=== PATIENT | female | born 1935 | race Caucasian/White ===

== ENCOUNTER 2021-04-24 08:32 | Inpatient (IN) | payer MEDICARE ==
[~2021-04-24] VITALS: Ht 157.5 cm; Wt 51.8 kg
[2021-04-24] MEDS ORDERED: NITR100C2 PO (09:06)
[2021-04-24] MEDS ORDERED: LISI10TA22 (09:06)
[2021-04-24] MEDS ORDERED: DONE10TA90 PO (09:06)
[2021-04-24] MEDS ORDERED: PHEN-501 PO (09:06)
--- NOTE | 2021-04-24 09:48 | REP ---
INDICATION: altered LOC. COMPARISON: None. TECHNIQUE: Single portable AP view of the chest was performed. FINDINGS: There is mild linear fibro atelectatic change in each lung base. There is mild cardiomegaly. There is mild calcification and tortuosity of the thoracic aorta. IMPRESSION: No acute infiltrate. Mild cardiomegaly. <Electronically signed by Sarkis Crowe > 04/24/21 [id number]
[2021-04-24 10:01] LABS: BASO # 0.1 10^3/uL (0.0-0.2); BASO % 0.4 % (0.0-1.0); EOS # 0.1 10^3/uL (0.0-0.5); EOS % 1.2 % (0.0-3.0); HEMATOCRIT 46.9 % (36.0-47.0); HEMOGLOBIN 15.3 g/dl (12.0-15.5); LYMPH # 1.5 10^3/uL (1.5-5.0); LYMPH % 12.3 % (24.0-44.0); MEAN CORPUSCULAR HGB CONC 32.6 g/dl (32.0-36.5); MEAN CORPUSCULAR VOLUME 94.9 fl (80.0-96.0); MONO % 8.5 % (2.0-8.0); NEUTROPHILS # 9.3 10^3/uL (1.5-8.5); PLATELET COUNT, AUTOMATED 312 10^3/uL (150-450); RED BLOOD COUNT 4.94 10^6/uL (4.00-5.40); WHITE BLOOD COUNT 12.1 10^3/uL (4.0-10.0)
[2021-04-24 10:28] LABS: BLOOD UREA NITROGEN 24 MG/DL (7-18); CALCIUM LEVEL 9.3 MG/DL (8.8-10.2); CARBON DIOXIDE LEVEL 25 MEQ/L (21-32); CHLORIDE LEVEL 110 MEQ/L (98-107); GLOMERULAR FILTRATION RATE > 60.0 (>32); GLUCOSE, FASTING 102 MG/DL (70-100); POTASSIUM SERUM 4.1 MEQ/L (3.5-5.1); SODIUM LEVEL 142 MEQ/L (136-145)
[2021-04-24 11:00] LABS: BILIRUBIN, URINE MANUAL OBSCURED (NEGATIVE); GLUCOSE, URINE (UA) MANUAL NEGATIVE (NEGATIVE); KETONE, URINE MANUAL OBSCURED mg/dL (NEGATIVE); UROBILINOGEN, URINE MANUAL OBSCURED mg/dl (NORMAL)
--- NOTE | 2021-04-24 11:02 | REP ---
INDICATION: CVA. COMPARISON: None. TECHNIQUE: CT brain performed in the axial plane. Coronal reconstruction images are performed. FINDINGS: There is moderate atrophy. There is no midline shift or mass effect. There are mild periventricular hypodensities bilaterally suggesting chronic small vessel ischemic change. There is no acute intracranial hemorrhage. There is no extra-axial fluid collection. There is no skull fracture. There are vascular calcifications in the carotid siphons. The visualized paranasal sinuses and mastoid air cells are clear. IMPRESSION: Chronic atrophy. No acute intracranial hemorrhage, midline shift or mass effect. <Electronically signed by Sarkis Crowe > 04/24/21 [id number]
[2021-04-24 11:13] LABS: BACTERIA, URINE SMALL AMOUNT; HYALINE CAST, URINE NONE SEEN /lpf (0-1); RBC, URINE 0-1 /hpf (0-3); SQUAMOUS EPITHELIAL CELL URINE SMALL AMOUNT /hpf (SMALL AMT)
[2021-04-24] MEDS ORDERED: hydrALAZINE 20MG/ML 1ML VIAL (J0360 PER 20MG) IV ONE (11:30)
[2021-04-24] MEDS ORDERED: ISOVUE-370 76% 100ML VIAL As Ordered ONE (11:59)
[2021-04-24 12:32] LABS: CPK CREATINE PHOSPHOKINASE 112 U/L (26-192); MB/CK RELATIVE INDEX 0.89 (< OR =4); TROPONIN I < 0.02 NG/ML (< 0.10)
--- NOTE | 2021-04-24 13:20 | REPVR ---
PROCEDURE INFORMATION: Exam: CT Angiography Head With Contrast, Arteriography Exam date and time: 04/24/2021 12:05 PM Age: 86 years old Clinical indication: Weakness; Additional info: CVA TECHNIQUE: Imaging protocol: Computed tomography angiography of the head with contrast. Exam focused on the arteries. 3D rendering (Not supervised by radiologist): MIP and/or 3D reconstructed images were created by the technologist. Radiation optimization: All CT scans at this facility use at least one of these dose optimization techniques: automated exposure control; mA and/or kV adjustment per patient size (includes targeted exams where dose is matched to clinical indication); or iterative reconstruction. Contrast material: ISO 370; Contrast volume: 100 ml; Contrast route: INTRAVENOUS (IV); COMPARISON: CT Head without contrast 04/24/2021 10:45 AM FINDINGS: ANTERIOR CIRCULATION: Right internal carotid artery: Unremarkable. Intracranial segment is patent with no significant stenosis. No aneurysm. Right middle cerebral artery: Unremarkable. No occlusion or significant stenosis. No aneurysm. Right anterior cerebral artery: Unremarkable. No occlusion or significant stenosis. No aneurysm. Left internal carotid artery: Unremarkable. Intracranial segment is patent with no significant stenosis. No aneurysm. Left middle cerebral artery: There is severe focal stenosis at the M1/M2 junction of the left middle cerebral artery. There is a focal occlusion at the origin of the M2 superior division of the left middle cerebral artery. Left anterior cerebral artery: Unremarkable. No occlusion or significant stenosis. No aneurysm. POSTERIOR CIRCULATION: Right vertebral artery: Unremarkable. No occlusion or significant stenosis. No aneurysm. Left vertebral artery: Unremarkable. No occlusion or significant stenosis. No aneurysm. Basilar artery: Unremarkable. No occlusion or significant stenosis. No aneurysm. Right posterior cerebral artery: There is severe stenosis of the mid P2 segment of the right posterior cerebral artery. Left posterior cerebral artery: Unremarkable. No occlusion or significant stenosis. No aneurysm. Brain: No definite mass, mass effect, or midline shift. Cerebral ventricles: No ventriculomegaly. Bones/joints: Unremarkable. No acute fracture. Soft tissues: Unremarkable. IMPRESSION: 1. 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 2. Severe stenosis of the mid P2 segment of the right posterior cerebral artery. Electronically signed by: Susanne Waller On 04/24/2021 13:20:25 PM
--- NOTE | 2021-04-24 13:28 | REPVR ---
PROCEDURE INFORMATION: Exam: CT Angiography Neck With Contrast Exam date and time: 04/24/2021 12:05 PM Age: 86 years old Clinical indication: Weakness; Additional info: CVA TECHNIQUE: Imaging protocol: Computed tomography angiography of the neck with contrast. 3D rendering (Not supervised by radiologist): MIP and/or 3D reconstructed images were created by the technologist. Radiation optimization: All CT scans at this facility use at least one of these dose optimization techniques: automated exposure control; mA and/or kV adjustment per patient size (includes targeted exams where dose is matched to clinical indication); or iterative reconstruction. Contrast material: ISO 370; Contrast volume: 100 ml; Contrast route: INTRAVENOUS (IV); COMPARISON: CT Head without contrast 04/24/2021 10:45 AM FINDINGS: Right common carotid artery: No stenosis. No dissection or occlusion. Right internal carotid artery: No stenosis of the extracranial segment. No dissection or occlusion. Right external carotid artery: No occlusion or stenosis of the origin. Left common carotid artery: No stenosis. No dissection or occlusion. Left internal carotid artery: No stenosis of the extracranial segment. No dissection or occlusion. Left external carotid artery: No occlusion or stenosis of the origin. Right vertebral artery: No stenosis. No dissection or occlusion. Left vertebral artery: No stenosis. No dissection or occlusion. Thyroid: There is diffuse masslike enlargement of the right thyroid lobe, with heterogeneous masses measuring up to 2.5 cm in diameter. The left thyroid lobe is surgically absent. Soft tissues: Normal. No significant soft tissue swelling. Bones/joints: No acute fracture. IMPRESSION: No significant cervical arterial stenosis. COMMENTS: Consistent with the [employer]'s Incidental Findings Committee white paper (J Am Dougie Radiol 2015): In patients aged 35 years and older with an incidental thyroid nodule equal to or greater than 1.[address], MRI or extrathyroidal US, further evaluation with dedicated thyroid US is recommended for patients with normal life expectancy and without comorbidities. For smaller nodules without suspicious features, no further evaluation or follow up is recommended. REFERENCES: NASCET CRITERIA. The degree of internal carotid artery stenosis is based on NASCET criteria. Normal is no stenosis. Mild is less than 50% stenosis. Moderate is 50-69% stenosis. Severe is 70% to 99% stenosis. Total occlusion is no detectable patent lumen. Electronically signed by: Susanne Waller On 04/24/2021 13:27:38 PM
[2021-04-24] MEDS ORDERED: niCARdipine IV 40 MG in IV 1 EA IV SCH (14:00)
[2021-04-24] MEDS ORDERED: PROAAER10 INH (14:33)
[2021-04-24] MEDS ORDERED: ACET-907 PO (14:33)
[2021-04-24] MEDS ORDERED: MELA10CA2 PO (14:33)
[2021-04-24] MEDS ORDERED: HOME MED LIST COMPLETE! XX SCH (14:35)
[2021-04-24] MEDS ORDERED: lisinopriL 40 MG TAB PO ONE (14:45)
--- NOTE | 2021-04-24 15:02 | HPEPDOC ---
General Date of Admission 04/24/21 Date of Service: Apr 24, 2021 Chief Complaint The patient is a 86-year-old female admitted with a reason for visit of AMS. Source: Patient Exam Limitations: Clinical conditions History of Present Illness Patient is 86 years old female with past medical history of Jeremie body dementia, hypertension presented to hospital with increased mental confusion. According to her daughter who is present in the ER patient developed increased mental confusion on Saturday which became progressively worse compared to her baselin e. Patient became more weak and somnolent. Her daughter brought her to the [facility] where patient was diagnosed with UTI, nitrofurantoin was prescribed. CT head was done and was negative for stroke or bleed. On Saturday patient was able to answer the question and communicate. Since Saturday patient became more mentally confused and weak. In ER patient was found to have elevated systolic blood pressure up to 210, leukocytosis of 12.1, creatinine within normal limit. Chest x-ray shows no any acute infiltrate, CT head negative for acute bleeding or stroke. 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 Severe stenosis of the mid P2 segment of the right posterior cerebral artery. Home Medications Scheduled Donepezil HCl (Donepezil HCl) 10 Mg Tablet, 10 MG PO QHS, (Reported) Melatonin (Melatonin) 10 Mg Capsule, 10 MG PO QHS, (Reported) Nitrofurantoin Monohyd/M-Cryst (Nitrofurantoin [place]-Mcr 100 mg) 100 Mg Capsule, 100 MG PO BID, (Reported) Scheduled PRN Acetaminophen (Tylenol) 325 Mg Tablet, 650 MG PO QHS PRN for PAIN LEVEL 1-5, (Reported) Albuterol Sulfate (Proair Hfa) 8.5 Gm Hfa.aer.ad, 2 PUFF INH Q4H PRN for SHORTNESS OF BREATH, (Reported) Phenazopyridine HCl (Phenazopyridine HCl) 200 Mg Tablet, 200 MG PO TID PRN for BLADDER SPASM, (Reported) Allergies Coded Allergies: Sulfa (Sulfonamide Antibiotics) (Verified Allergy, Unknown, 04/24/21) Past Medical History Medical History Jeremie body dementia, hypertension Surgical History Cardiac catheterization in 2005, parathyroidectomy 2008, hysterectomy Family History I personally reviewed family history and found not pertinent Social History * Smoker: Denies Alcohol: Denies Drugs: denies A-FIB/CHADSVASC A-FIB History Current/History of A-Fib/PAF?: No Current PO Anticoag Therapy: No Review of Systems Constitutional: Reports: Other (Unable to obtain due to lethargy) Physical Examination General Exam: Negative: Alert Eye Exam: Positive: PERRLA ENT Exam: Positive: Atraumatic Neck Exam: Positive: Supple; Negative: JVD Chest Exam: Positive: Clear to auscultation Heart Exam: Positive: Rate Normal Telemetry: Positive: No significant arrhythmia Abdomen Exam: Positive: Normal bowel sounds Extremity Exam: Negative: Clubbing, Cyanosis Skin Exam: Positive: Nl turgor and temperature Neuro Exam: Positive: Reflexes 2+ Psych Exam: Negative: Oriented x 3 Vital Signs Vital Signs Date Time Temp Pulse Resp B/P (MAP) Pulse Ox O2 Delivery O2 Flow Rate FiO2 04/24/21 14:01 94 16 04/24/21 14:00 171/100 (123) 04/24/21 10:47 93 Room Air 04/24/21 09:01 98.0 Laboratory Data Labs 24H Laboratory Tests 2 04/24/21 09:48: Immature Granulocyte % (Auto) 0.6, Neutrophils (%) (Auto) 77.0H, Lymphocytes (%) (Auto) 12.3L, Monocytes (%) (Auto) 8.5H, Eosinophils (%) (Auto) 1.2, Basophils (%) (Auto) 0.4, Neutrophils # (Auto) 9.3H, Lymphocytes # (Auto) 1.5, Monocytes # (Auto) 1.0H, Eosinophils # (Auto) 0.1, Basophils # (Auto) 0.1, Nucleated Red Blood Cells % (auto) 0.0, Anion Gap 7L, Glomerular Filtration Rate > 60.0, Lactic Acid Level 1.2, Calcium Level 9.3, Total Creatine Kinase 112, Creatine Kinase MB 1.0, Creatine Kinase MB Relative Index 0.89, Troponin I < 0.02 04/24/21 10:46: Urine Color (RADHA) ORANGEH, Urine Appearance (RADHA) CLEAR, Urine pH (RADHA) 5.5, Urine Specific [place] (RADHA) 1.025, Bedside Urine Glucose (UA) NEGATIVE, Bedside Urine Ketones (LAB) OBSCUREDH, Bedside Urine Blood TRACEH, Bedside Urine Nitrite (LAB) OBSCUREDH, Bedside Urine Bilirubin (LAB) OBSCUREDH, Bedside Urine Urobilinogen (LAB) OBSCUREDH, Bedside Urine Leukocyte Esterase (L OBSCUREDH, Urine Sediment Examination PERFORMED, Urine RBC 0-1, Urine WBC 0-1, Urine Squamous Epithelial Cells SMALL AMOUNT, Urine Bacteria SMALL AMOUNTH, Urine Hyaline Casts NONE SEEN CBC/BMP Laboratory Tests 04/24/21 09:48 Microbiology Microbiology 04/24/21 Urine Culture, Received Pending 04/24/21 Blood Culture, Received Pending 04/24/21 Respiratory Virus Panel (PCR) (ANUEL) - Final, Complete Assessment/Plan Patient is 86 years old female with past medical history of Jeremie body dementia, hypertension presented to hospital with increased mental confusion. According to her daughter who is present in the ER patient developed increased mental confusion on Saturday which became progressively worse compared to her bas guillermo. Patient became more weak and somnolent. Her daughter brought her to the [facility] where patient was diagnosed with UTI, nitrofurantoin was prescribed. CT head was done and was negative for stroke or bleed. On Saturday patient was able to answer the question and communicate. Since Saturday patient became more mentally confused and weak. In ER patient was found to have elevated systolic blood pressure up to 210, leukocytosis of 12.1, creatinine within normal limit. Chest x-ray shows no any acute infiltrate, CT head negative for acute bleeding or stroke. 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 Severe stenosis of the mid P2 segment of the right posterior cerebral artery. Problems (1) Metabolic encephalopathy Status: Acute Problem Text: Most likely multifactorial. Differential diagnosis includes hypertensive emergency, possible stroke, UTI and delirium I will give aspirin per rectum empirically Will proceed with brain MRI I will start ceftriaxone IV empirically for possible UTI (2) Hypertensive emergency Status: Acute Problem Text: Hydralazine IV as needed Lisinopril 40 mg p.o. Continue to monitor (3) Dementia Status: Chronic Problem Text: Follow-up with neurologist in the outpatient settings (4) Physical deconditioning Status: Chronic Problem Text: PT/OT (5) UTI (urinary tract infection) Status: Acute Problem Text: Await urine culture See above Plan / VTE VTE Prophylaxis Ordered?: Yes TRACY PETE DO Apr 24, 2021 15:02
[2021-04-24] MEDS: cefTRIAXone SOD 2 GM in D5W MINI-BAG PLUS 50 ML IV SCH (15:44)
[2021-04-24] MEDS: D5W/0.9% SODIUM CHLORIDE 1,000 ML IV SCH (16:49)
[2021-04-24] MEDS: ASPIRIN 300 MG SUPP PR SCH (20:15)
[2021-04-24 20:30] VITALS: BP 185/92
[2021-04-24 21:30] VITALS: BP 185/92
[2021-04-24 21:46] VITALS: BP 189/114
[2021-04-24] MEDS: hydrALAZINE 20MG/ML 1ML VIAL (J0360 PER 20MG) IV PRN (21:50)
--- NOTE | 2021-04-24 21:59 | ECGEPIP ---
[facility] - ED Test Date: 2021-04-24 Pat Name: ABHAY GRAHAM Department: Room: Gender: Female [employer]: CHARAN : 1935 Requested By: Justo Cabello Order Number: [id number] Reading MD: Clifton Castano Measurements Intervals [place] Rate: 68 P: 29 CA: 162 QRS: -16 QRSD: 76 T: -49 QT: 400 QTc: 425 Interpretive Statements Normal sinus rhythm Minimal voltage criteria for LVH, may be normal variant ( R in aVL ) Nonspecific ST and T wave abnormality Baseline artifact Comparison tracing not on file Electronically Signed on 04-24-2021 21:59:13 EDT by Clifton Castano
[2021-04-24 22:35] VITALS: BP 142/67
[2021-04-25] VITALS (13 sets, daily range): BP systolic 137–212; BP diastolic 70–108
[2021-04-25] MEDS: D5W/0.9% SODIUM CHLORIDE 1,000 ML IV SCH ×2 (03:47→15:03)
[2021-04-25] MEDS: hydrALAZINE 20MG/ML 1ML VIAL (J0360 PER 20MG) IV PRN ×3 (04:19→21:14)
[2021-04-25 05:32] LABS: HEMATOCRIT 42.8 % (36.0-47.0); HEMOGLOBIN 13.9 g/dl (12.0-15.5); MEAN CORPUSCULAR HEMOGLOBIN 30.8 pg (27.0-33.0); MEAN CORPUSCULAR HGB CONC 32.5 g/dl (32.0-36.5); MEAN CORPUSCULAR VOLUME 94.7 fl (80.0-96.0); PLATELET COUNT, AUTOMATED 291 10^3/uL (150-450); RED BLOOD COUNT 4.52 10^6/uL (4.00-5.40); WHITE BLOOD COUNT 12.6 10^3/uL (4.0-10.0)
[2021-04-25 06:04] LABS: ALBUMIN 3.2 GM/DL (3.2-5.2); ALT/SGPT 19 U/L (12-78); BILIRUBIN,TOTAL 0.5 MG/DL (0.2-1.0); BLOOD UREA NITROGEN 19 MG/DL (7-18); CALCIUM LEVEL 8.1 MG/DL (8.8-10.2); CARBON DIOXIDE LEVEL 24 MEQ/L (21-32); CHLORIDE LEVEL 114 MEQ/L (98-107); CREATININE FOR GFR 0.54 MG/DL (0.55-1.30); GLOMERULAR FILTRATION RATE > 60.0 (>32); GLUCOSE, FASTING 142 MG/DL (70-100); MAGNESIUM LEVEL 2.2 MG/DL (1.8-2.4); SODIUM LEVEL 143 MEQ/L (136-145); TOTAL PROTEIN 6.4 GM/DL (6.4-8.2)
--- NOTE | 2021-04-25 06:09 | REPVR ---
PROCEDURE INFORMATION: Exam: US Duplex Bilateral Extracranial Arteries Exam date and time: 04/25/2021 3:39 AM Age: 86 years old Clinical indication: Numbness / parasthesia and other: CVA; Left TECHNIQUE: Imaging protocol: Real-time Duplex ultrasound scan of the bilateral carotid and vertebral arteries combining tate scale, color Doppler and spectral waveform analysis. Bilateral exam. COMPARISON: CT ANGIO NECK 04/24/2021 12:03 PM FINDINGS: Right (cm/sec) Left (cm/sec) Common carotid artery: 39 36 Proximal internal carotid artery: 43 63 Mid internal carotid artery: 42 not evaluated Distal internal carotid artery: 52 not evaluated ICA/CCA ratio: 0.76 not calculated Vertebral Artery: Antegrade not evaluated Plaque: Minimal calcified plaque in the right carotid bulb and proximal ICA. No stenosis. Findings: Minimal plaque formation in the right carotid bulb and proximal ICA. No flow limiting stenosis. Limited evaluation of the left internal carotid artery and left vertebral artery due to lack of patient cooperation.. IMPRESSION: No right carotid arterial stenosis. 2. Limited evaluation of the left carotid and left vertebral artery due to lack of patient cooperation REFERENCES: SRU CRITERIA. The degree of internal carotid artery stenosis is based on criteria defined by the Society of Radiologists in Ultrasound (SRU). Normal is no stenosis. Mild is less than 50% stenosis. Moderate is 50-69% stenosis. Severe is greater than 69% stenosis to near occlusion. Near occlusion is a markedly narrowed lumen. Total occlusion is no detectable patent lumen. Electronically signed by: Sybil Perez On 04/25/2021 06:09:01 AM
[2021-04-25] MEDS ORDERED: PREVNAR 13 VACCINE SYRINGE IM ONE (09:00)
[2021-04-25] MEDS: lisinopriL 40 MG TAB PO SCH (09:00)
[2021-04-25] MEDS: ASPIRIN 300 MG SUPP PR SCH (09:40)
--- NOTE | 2021-04-25 11:09 | IPNPDOC ---
Text Note Date of Service The patient was seen on 04/25/21. NOTE Subjective: Patient is verbally unresponsive, but follows simple commands. Objective: GENERAL APPEARANCE: Verbally unresponsive HEENT: no scleral icterus, no JVD, EOMI CARDIOVASCULAR: S1S2 LUNGS: CTA ABDOMEN: soft & not tender w palpitation MUSCULOSKELETAL: no cyanosis, no swelling INTEGUMENT: no generalized pallor NEUROLOGICAL: Unable to evaluate, follows simple commands Assessment/Plan Patient is 86 years old female with past medical history of Jeremie body dementia, hypertension presented to hospital with increased mental confusion. According to her daughter who is present in the ER patient developed increased mental confusion on Saturday which became progressively worse compared to her baseline. Patient became more weak and somnolent. Her daughter brought her to the [facility] where patient was diagnosed with UTI, nitrofurantoin was prescribed. CT head was done and was negative for stroke or bleed. On Saturday patient was able to answer the question and communicate. Since Saturday patient became more mentally confused and weak. In ER patient was found to have elevated systolic blood pressure up to 210, leukocytosis of 12.1, creatinine within normal limit. Chest x-ray shows no any acute infiltrate, CT head negative for acute bleeding or stroke. 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 Severe stenosis of the mid P2 segment of the right posterior cerebral artery. (1) Metabolic encephalopathy Most likely multifactorial. Differential diagnosis includes hypertensive emergency, UTI, stroke and delirium Continue ceftriaxone IV empirically for possible UTI Brain MRI was not done yesterday due to patient was restless Procalcitonin negative I will repeat CT head (2) Hypertensive emergency/hypertension Blood pressure under control Hydralazine IV as needed Lisinopril 40 mg p.o. Continue to monitor (3) Dementia Follow-up with neurologist in the outpatient settings (4) Physical deconditioning PT/OT (5) UTI (urinary tract infection) urine culture shows LACTOBACILLUS SPECIES, most likely contamination See above VS,Fishbone, I+O VS, Fishbone, I+O Laboratory Tests 04/25/21 05:16 Vital Signs Date Time Temp Pulse Resp B/P (MAP) Pulse Ox O2 Delivery O2 Flow Rate FiO2 04/25/21 08:00 97.2 76 16 158/78 (104) 94 04/25/21 04:13 Room Air I&O- Last 24 Hours up to 6 AM 04/25/21 06:00 Intake Total 410 ml Output Total 1300 ml Balance -890 ml TRACY PTEE DO Apr 25, 2021 11:09
[2021-04-25] MEDS: cefTRIAXone SOD 2 GM in D5W MINI-BAG PLUS 50 ML IV SCH (15:03)
--- NOTE | 2021-04-25 17:18 | REPVR ---
PROCEDURE INFORMATION: Exam: CT Head Without Contrast Exam date and time: 04/25/2021 5:03 PM Age: 86 years old Clinical indication: Weakness, facial; Additional info: R/O stroke. TECHNIQUE: Imaging protocol: Computed tomography of the head without contrast. Radiation optimization: All CT scans at this facility use at least one of these dose optimization techniques: automated exposure control; mA and/or kV adjustment per patient size (includes targeted exams where dose is matched to clinical indication); or iterative reconstruction. Other technique: STROKE PROTOCOL was implemented. COMPARISON: CT Head without contrast 04/24/2021 10:45 AM FINDINGS: Brain: Hypodensity is identified within the left basal ganglia, new compared to the recent prior study and therefore consistent with acute infarction. No acute intracranial hemorrhage is visualized. A calcification is visualized within the left basal ganglia. The white-tate differentiation is otherwise preserved. There are periventricular foci of white matter hypodensity, likely representing small vessel ischemic disease. The acuity of the white matter disease is indeterminate. There is no midline shift. Cerebral ventricles: There is mild prominence of the ventricles and sulci, compatible with atrophy. Paranasal sinuses: Small mucous retention cyst or polyp in the left maxillary sinus. Mastoid air cells: No mastoid effusion. Orbital cavity: Bilateral orbital lens implants. Vasculature: Intracranial atherosclerosis visualized. Bones/joints: The calvarium demonstrates no evidence for a depressed fracture. Soft tissues: Unremarkable. Dental: An impacted tooth is identified within the right side of the maxilla. IMPRESSION: 1. Hypodensity is identified within the left basal ganglia, new compared to the recent prior study and therefore consistent with acute infarction. Correlation with MRI recommended, as clinically indicated. 2. There are periventricular foci of white matter hypodensity, likely representing small vessel ischemic disease. 3. Mild atrophy. 4. Additional findings described above. ASSESSMENT: ASPECTS ([place] Stroke Program Early CT Score) is 7. Electronically signed by: Rene Pate On 04/25/2021 17:17:38 PM
[2021-04-26] MEDS: D5W/0.9% SODIUM CHLORIDE 1,000 ML IV SCH ×3 (02:16→21:30)
[2021-04-26 04:00] VITALS: BP 166/80
[2021-04-26 05:26] LABS: BASO % 0.2 % (0.0-1.0); EOS % 0.1 % (0.0-3.0); HEMATOCRIT 38.2 % (36.0-47.0); HEMOGLOBIN 12.4 g/dl (12.0-15.5); LYMPH # 0.9 10^3/uL (1.5-5.0); MEAN CORPUSCULAR HEMOGLOBIN 30.9 pg (27.0-33.0); MEAN CORPUSCULAR HGB CONC 32.5 g/dl (32.0-36.5); MEAN CORPUSCULAR VOLUME 95.3 fl (80.0-96.0); MONO # 1.5 10^3/uL (0.0-0.8); MONO % 11.4 % (2.0-8.0); NEUTROPHILS # 10.4 10^3/uL (1.5-8.5); NEUTROPHILS % 80.5 % (36.0-66.0); PLATELET COUNT, AUTOMATED 274 10^3/uL (150-450); RED BLOOD COUNT 4.01 10^6/uL (4.00-5.40)
[2021-04-26 05:29] LABS: WHITE BLOOD COUNT 12.9 10^3/uL (4.0-10.0)
[2021-04-26 05:54] LABS: ALBUMIN 2.8 GM/DL (3.2-5.2); ALT/SGPT 23 U/L (12-78); BILIRUBIN,TOTAL 0.5 MG/DL (0.2-1.0); BLOOD UREA NITROGEN 16 MG/DL (7-18); CALCIUM LEVEL 7.8 MG/DL (8.8-10.2); CARBON DIOXIDE LEVEL 23 MEQ/L (21-32); CHLORIDE LEVEL 117 MEQ/L (98-107); GLOMERULAR FILTRATION RATE > 60.0 (>32); GLUCOSE, FASTING 136 MG/DL (70-100); MAGNESIUM LEVEL 2.1 MG/DL (1.8-2.4); POTASSIUM SERUM 3.4 MEQ/L (3.5-5.1); SODIUM LEVEL 146 MEQ/L (136-145); TOTAL PROTEIN 5.8 GM/DL (6.4-8.2)
[2021-04-26 08:00] VITALS: BP 148/72
[2021-04-26] MEDS: ASPIRIN 300 MG SUPP PR SCH (08:31)
[2021-04-26] MEDS: lisinopriL 40 MG TAB PO SCH (08:31)
--- NOTE | 2021-04-26 09:50 | IPNPDOC ---
Text Note Date of Service The patient was seen on 04/26/21. NOTE Subjective: Patient is verbally unresponsive, not follows simple commands. Objective: GENERAL APPEARANCE: Verbally unresponsive HEENT: no scleral icterus, no JVD, EOMI CARDIOVASCULAR: S1S2 LUNGS: CTA ABDOMEN: soft & not tender w palpitation MUSCULOSKELETAL: no cyanosis, no swelling INTEGUMENT: no generalized pallor NEUROLOGICAL: Unable to evaluate cranial nerves function, no follows simple commands Assessment/Plan Patient is 86 years old female with past medical history of Jeremie body dementia, hypertension presented to hospital with increased mental confusion. According to her daughter who is present in the ER patient developed increased mental confusion on Saturday which became progressively worse compared to her baseline. Patient became more weak and somnolent. Her daughter brought her to the [facility] where patient was diagnosed with UTI, nitrofurantoin was prescribed. CT head was done and was negative for stroke or bleed. On Saturday patient was able to answer the question and communicate. Since Saturday patient became more mentally confused and weak. In ER patient was found to have elevated systolic blood pressure up to 210, leukocytosis of 12.1, creatinine within normal limit. Chest x-ray shows no any acute infiltrate, CT head negative for acute bleeding or stroke. 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 Severe stenosis of the mid P2 segment of the right posterior cerebral artery. (1) Metabolic encephalopathy/CVA Most likely secondary to stroke. DC ceftriaxone IV Repeated CT showed Hypodensity is identified within the left basal ganglia, new compared to the recent prior study and therefore consistent with acute infarction Appreciated/agree with neurologist consult N.p.o. for now Overall prognosis is poor Continue aspirin per rectum (2) Hypertensive emergency/hypertension Blood pressure under control Hydralazine IV as needed Continue to monitor (3) Dementia Follow-up with neurologist in the outpatient settings (4) Physical deconditioning PT/OT (5) UTI (urinary tract infection) urine culture shows LACTOBACILLUS SPECIES, most likely contamination See above VS,Fishbone, I+O VS, Fishbone, I+O Laboratory Tests 04/26/21 04:43 Vital Signs Date Time Temp Pulse Resp B/P (MAP) Pulse Ox O2 Delivery O2 Flow Rate FiO2 04/26/21 08:00 98.6 54 18 148/72 (97) 96 Room Air I&O- Last 24 Hours up to 6 AM 04/26/21 06:00 Intake Total 1800 ml Output Total 750 ml Balance 1050 ml TRACY PETE DO Apr 26, 2021 09:50
[2021-04-26] MEDS ORDERED: KCL 10MEQ/100ML SWI (KRUN) 10 MEQ in IV 1 EA IV ONE (10:00)
[2021-04-26 12:00] VITALS: BP 154/75
[2021-04-26 16:00] VITALS: BP 166/78
[2021-04-26 20:00] VITALS: BP 182/81
[2021-04-27] VITALS (30 sets, daily range): BP systolic 134–198; BP diastolic 62–102
[2021-04-27] MEDS: lisinopriL 40 MG TAB PO SCH (07:37)
[2021-04-27] MEDS: D5W/0.9% SODIUM CHLORIDE 1,000 ML IV SCH (07:37)
[2021-04-27 08:02] LABS: BASO % 0.1 % (0.0-1.0); EOS % 0.2 % (0.0-3.0); HEMATOCRIT 38.1 % (36.0-47.0); HEMOGLOBIN 12.3 g/dl (12.0-15.5); LYMPH # 1.2 10^3/uL (1.5-5.0); LYMPH % 8.6 % (24.0-44.0); MEAN CORPUSCULAR HEMOGLOBIN 31.1 pg (27.0-33.0); MEAN CORPUSCULAR HGB CONC 32.3 g/dl (32.0-36.5); MEAN CORPUSCULAR VOLUME 96.2 fl (80.0-96.0); MONO # 1.4 10^3/uL (0.0-0.8); MONO % 10.4 % (2.0-8.0); NEUTROPHILS # 10.9 10^3/uL (1.5-8.5); NEUTROPHILS % 80.1 % (36.0-66.0); PLATELET COUNT, AUTOMATED 229 10^3/uL (150-450); RED BLOOD COUNT 3.96 10^6/uL (4.00-5.40); WHITE BLOOD COUNT 13.7 10^3/uL (4.0-10.0)
[2021-04-27] MEDS: ASPIRIN 300 MG SUPP PR SCH (08:13)
[2021-04-27 08:36] LABS: ALT/SGPT 147 U/L (12-78); BLOOD UREA NITROGEN 15 MG/DL (7-18); CALCIUM LEVEL 8.1 MG/DL (8.8-10.2); CARBON DIOXIDE LEVEL 21 MEQ/L (21-32); CHLORIDE LEVEL 119 MEQ/L (98-107); CREATININE FOR GFR 0.54 MG/DL (0.55-1.30); GLOMERULAR FILTRATION RATE > 60.0 (>32); GLUCOSE, FASTING 138 MG/DL (70-100); POTASSIUM SERUM 3.3 MEQ/L (3.5-5.1); SODIUM LEVEL 152 MEQ/L (136-145)
[2021-04-27 08:37] LABS: ALBUMIN 2.6 GM/DL (3.2-5.2); BILIRUBIN,TOTAL 0.9 MG/DL (0.2-1.0); CHOLESTEROL LEVEL 176 MG/DL (<200); CHOLESTEROL RISK RATIO 4.512 (<5); HDL CHOLESTEROL 39 MG/DL (>40); LDL CHOLESTEROL 117 MG/DL (<100); MAGNESIUM LEVEL 2.2 MG/DL (1.8-2.4); NON-HDL-C 137 MG/DL; TOTAL PROTEIN 5.7 GM/DL (6.4-8.2); TRIGLYCERIDES LEVEL 102 MG/DL (<150)
[2021-04-27] MEDS: hydrALAZINE 20MG/ML 1ML VIAL (J0360 PER 20MG) IV PRN ×7 (08:57→17:43)
--- NOTE | 2021-04-27 09:17 | REP ---
INDICATION: SOB. COMPARISON: Comparison chest x-ray: April 24, 2021. TECHNIQUE: Portable upright AP chest radiograph. FINDINGS: EKG monitoring electrodes overlie the chest. The heart is enlarged unchanged. The aorta is tortuous and calcific. There is mild linear fibrosis in each lung base. No pleural effusion or pulmonary edema is seen. Pulmonary vasculature appears cephalized. No definite infiltrate.. IMPRESSION: CHF pattern with vascular cephalization and cardiomegaly. Bibasilar linear fibrosis.. <Electronically signed by Stephen Mari > 04/27/21 0929
[2021-04-27] MEDS ORDERED: D5W/0.45% SODIUM CHLORIDE 1,000 ML IV SCH (11:10)
[2021-04-27] MEDS ORDERED: D5W/0.45% SODIUM CHLORIDE 1,000 ML IV ONE ×2 (11:10→13:00)
[2021-04-27] MEDS ORDERED: KCL 20MEQ IN D5/0.45NS 1000ML 1,000 ML IV SCH (11:10)
--- NOTE | 2021-04-27 11:14 | IPNPDOC ---
Text Note Date of Service The patient was seen on 04/27/21. NOTE Subjective: Patient is verbally unresponsive, but more awake and alert compared to yesterday Objective: GENERAL APPEARANCE: Verbally unresponsive HEENT: no scleral icterus, no JVD, EOMI CARDIOVASCULAR: S1S2 LUNGS: CTA ABDOMEN: soft & not tender w palpitation MUSCULOSKELETAL: no cyanosis, no swelling INTEGUMENT: no generalized pallor NEUROLOGICAL: Unable to evaluate cranial nerves function, right hemiplegia Assessment/Plan Patient is 86 years old female with past medical history of Jeremie body dementia, hypertension presented to hospital with increased mental confusion. According to her daughter who is present in the ER patient developed increased mental confusion on Saturday which became progressively worse compared to her baseline. Patient became more weak and somnolent. Her daughter brought her to the [facility] where patient was diagnosed with UTI, nitrofurantoin was prescribed. CT head was done and was negative for stroke or bleed. On Saturday patient was able to answer the question and communicate. Since Saturday patient became more mentally confused and weak. In ER patient was found to have elevated systolic blood pressure up to 210, leukocytosis of 12.1, creatinine within normal limit. Chest x-ray shows no any acute infiltrate, CT head ne gative for acute bleeding or stroke. 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 Severe stenosis of the mid P2 segment of the right posterior cerebral artery. (1) Metabolic encephalopathy/CVA Most likely secondary to stroke. Repeated CT showed Hypodensity is identified within the left basal ganglia, new compared to the recent prior study and therefore consistent with acute infarction Appreciated/agree with neurologist consult Continue n.p.o. for now, patient is not able to swallow. Speech evaluation Overall prognosis is poor Continue aspirin per rectum (2) Hypertensive emergency/hypertension Blood pressure under control Hydralazine IV as needed Continue to monitor (3) Dementia Follow-up with neurologist in the outpatient settings (4) Physical deconditioning PT/OT (5) UTI (urinary tract infection) urine culture shows LACTOBACILLUS SPECIES, most likely contamination See above Hypernatremia/metabolic alkalosis Secondary to water deficit I will give D5 with half of normal saline 2 boluses and continues fluid 130 cc/h We will continue to monitor BMP VS,Fishbone, I+O VS, Fishbone, I+O Laboratory Tests 04/27/21 07:37 Vital Signs Date Time Temp Pulse Resp B/P (MAP) Pulse Ox O2 Delivery O2 Flow Rate FiO2 04/27/21 08:57 194/78 04/27/21 08:00 99.3 41 16 93 Room Air I&O- Last 24 Hours up to 6 AM 04/27/21 06:00 Intake Total 0 ml Output Total 150 ml Balance -150 ml TRACY PETE DO Apr 27, 2021 11:14
[2021-04-27] MEDS ORDERED: KCL 10MEQ/100ML SWI (KRUN) 10 MEQ in IV 1 EA IV ONE (12:00)
--- NOTE | 2021-04-27 13:30 | CR ---
CONSULTATION DATE: 04/25/2021 REFERRING PHYSICIAN: Dr. Saulo Man REASON FOR CONSULTATION: Altered mental status and right-sided weakness. HISTORY OF PRESENT ILLNESS: lOga Morris is an 86-year-old woman with a history of possible Lewy body dementia and hypertension who presented to [facility] with confusion, altered speech, leaning to right side, and facial droop. Last week on Saturday she went to [facility] and was diagnosed with urinary tract infection and was prescribed nitrofurantoin. History was obtained from electronic medical records and patient's son-in-law, whom I talked to on phone. Next day, patient's symptoms worsened, and she developed more speech difficulty and right-sided weakness. According to the patient's son-in-law, patient follows with a neurologist in [facility], and she has a summer cottage in this region, and she was visiting there. At her baseline she is able to walk and is able to speak and communicate. He himself has not noted significant memory issues at patient's baseline. Patient was unable to provide any meaningful history during today's visit. There are no reports of headaches, neck/back pain, diplopia, fall, head injuries, or loss of consciousness. Initial CT scan of head in the emergency department was reported as unremarkable. Repeat CT scan of head shows a new left basal ganglia acute ischemic stroke. CT angiogram (CTA) of neck and ultrasound of neck were unremarkable. CTA of head showed left middle cerebral artery severe stenosis and right posterior cerebral artery severe stenosis. Complete blood count (CBC) and metabolic profile were unremarkable. HOME MEDICATIONS: - donepezil 10 mg by mouth daily - melatonin 10 mg by mouth daily - nitrofurantoin 100 mg by mouth twice a day - Tylenol as needed - albuterol inhaler as needed - phenazopyridine 200 mg by mouth three times a day as needed ALLERGIES: SULFA. MEDICAL HISTORY: 1. Lewy body dementia. 2. Hypertension. 3. Cardiac catheterization in 2005. 4. Parathyroidectomy in 2008. 5. Hysterectomy. SOCIAL HISTORY: No reports of smoking, alcohol, or illicit drugs. FAMILY HISTORY: Unremarkable and noncontributory. REVIEW OF SYSTEMS: All systems were reviewed and found to be noncontributory except as mentioned in history of present illness. PHYSICAL EXAMINATION: Temperature 98.4, pulse 52, respiratory rate 22, blood pressure 166/78. HEART: Regular rate and rhythm. Telemetry monitoring revealed sinus bradycardia. LUNGS: Clear to auscultation. ABDOMEN: Soft, nontender, nondistended. No pedal edema. Patient is drowsy but opens eyes to physical stimuli. She is unable to speak. Extraocular muscles are intact. She has right-sided upper motor neuron type facial weakness. No nystagmus. She has right-sided neglect and right hemiparesis. She is able to withdraw left side much more rigorously to pain than right side. She does withdraw on right side to pain. Right plantar is upgoing. Left plantar is downgoing. Sensory cerebellar and gait testing could not be performed due to patient's drowsiness and inability to follow commands. ASSESSMENT: 1. Left basal ganglia acute ischemic stroke, causing aphasia and right hemiparesis. 2. 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 3. Underlying Lewy body dementia, for which patient saw neurology in [place], [place]. PLAN: 1. Aspirin 300 mg per rectum daily. 2. Patient is unable to lie still for MRI scan of brain. 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 I had a detailed discussion with patient's son-in-law about patient's diagnosis and prognosis. 3. Continue donepezil 10 mg daily. 4. Her aphasia and right hemiparesis would cause significant decline in her activities of daily living, especially in the presence of underlying dementia, which has been diagnosed as Lewy body dementia. Her overall prognosis is guarded.
[2021-04-27] MEDS ORDERED: ACETAMINOPHEN 650 MG SUPP PR PRN (13:40)
[2021-04-27] MEDS ORDERED: FUROSEMIDE 40MG/4ML VIAL (J1940) IV ONE (15:20)
[2021-04-27 16:55] LABS: BLOOD UREA NITROGEN 12 MG/DL (7-18); CALCIUM LEVEL 8.2 MG/DL (8.8-10.2); CARBON DIOXIDE LEVEL 20 MEQ/L (21-32); CHLORIDE LEVEL 118 MEQ/L (98-107); CREATININE FOR GFR 0.45 MG/DL (0.55-1.30); GLOMERULAR FILTRATION RATE > 60.0 (>32); GLUCOSE, FASTING 94 MG/DL (70-100); SODIUM LEVEL 149 MEQ/L (136-145)
[2021-04-27] MEDS ORDERED: NITROPRUSSIDE SODIUM 50 MG in IV 1 EA IV SCH ×2 (18:00→21:48)
[2021-04-27 19:23] LABS: BLOOD UREA NITROGEN 13 MG/DL (7-18); CALCIUM LEVEL 7.8 MG/DL (8.8-10.2); CARBON DIOXIDE LEVEL 21 MEQ/L (21-32); CHLORIDE LEVEL 119 MEQ/L (98-107); CREATININE FOR GFR 0.52 MG/DL (0.55-1.30); GLOMERULAR FILTRATION RATE > 60.0 (>32); GLUCOSE, FASTING 109 MG/DL (70-100); POTASSIUM SERUM 2.8 MEQ/L (3.5-5.1); SODIUM LEVEL 148 MEQ/L (136-145)
[2021-04-27] MEDS: KCL 10MEQ/100ML SWI (KRUN) 10 MEQ in IV 1 EA IV SCH ×3 (19:42→21:47)
[2021-04-27] MEDS: KCL 20MEQ IN D5/0.45NS 1000ML 1,000 ML IV SCH (23:01)
[2021-04-27] MEDS: NITROGLYCERIN/D5W 100MCG/ML 25 MG in IV 1 EA IV SCH (23:46)
[2021-04-28] VITALS (95 sets, daily range): BP systolic 114–231; BP diastolic 59–173
[2021-04-28 01:36] LABS: BLOOD UREA NITROGEN 14 MG/DL (7-18); CALCIUM LEVEL 7.8 MG/DL (8.8-10.2); CARBON DIOXIDE LEVEL 22 MEQ/L (21-32); CHLORIDE LEVEL 120 MEQ/L (98-107); CREATININE FOR GFR 0.61 MG/DL (0.55-1.30); GLOMERULAR FILTRATION RATE > 60.0 (>32); GLUCOSE, FASTING 122 MG/DL (70-100); POTASSIUM SERUM 3.2 MEQ/L (3.5-5.1); SODIUM LEVEL 147 MEQ/L (136-145)
[2021-04-28] MEDS ORDERED: KCL 10MEQ/100ML SWI (KRUN) 10 MEQ in IV 1 EA IV SCH (02:15)
[2021-04-28] MEDS: KCL 10MEQ/100ML SWI (KRUN) 10 MEQ in IV 1 EA IV SCH ×3 (02:28→04:31)
[2021-04-28] MEDS ORDERED: KCL 10MEQ/100ML SWI (KRUN) 10 MEQ in IV 1 EA IV ONE (07:15)
[2021-04-28] MEDS: lisinopriL 40 MG TAB PO SCH (08:20)
[2021-04-28 08:25] LABS: BASO # 0.1 10^3/uL (0.0-0.2); BASO % 0.4 % (0.0-1.0); EOS # 0.1 10^3/uL (0.0-0.5); EOS % 0.7 % (0.0-3.0); HEMATOCRIT 33.6 % (36.0-47.0); LYMPH # 1.4 10^3/uL (1.5-5.0); LYMPH % 11.3 % (24.0-44.0); MEAN CORPUSCULAR HEMOGLOBIN 30.8 pg (27.0-33.0); MEAN CORPUSCULAR HGB CONC 32.7 g/dl (32.0-36.5); MEAN CORPUSCULAR VOLUME 94.1 fl (80.0-96.0); MONO # 1.2 10^3/uL (0.0-0.8); MONO % 9.2 % (2.0-8.0); NEUTROPHILS # 9.9 10^3/uL (1.5-8.5); NEUTROPHILS % 77.2 % (36.0-66.0); PLATELET COUNT, AUTOMATED 234 10^3/uL (150-450); RED BLOOD COUNT 3.57 10^6/uL (4.00-5.40); WHITE BLOOD COUNT 12.8 10^3/uL (4.0-10.0)
[2021-04-28 08:46] LABS: ALBUMIN 2.3 GM/DL (3.2-5.2); ALT/SGPT 124 U/L (12-78); BILIRUBIN,TOTAL 0.6 MG/DL (0.2-1.0); BLOOD UREA NITROGEN 16 MG/DL (7-18); CALCIUM LEVEL 8.1 MG/DL (8.8-10.2); CARBON DIOXIDE LEVEL 20 MEQ/L (21-32); CHLORIDE LEVEL 119 MEQ/L (98-107); CREATININE FOR GFR 0.49 MG/DL (0.55-1.30); GLOMERULAR FILTRATION RATE > 60.0 (>32); GLUCOSE, FASTING 119 MG/DL (70-100); POTASSIUM SERUM 3.7 MEQ/L (3.5-5.1); SODIUM LEVEL 148 MEQ/L (136-145); TOTAL PROTEIN 5.1 GM/DL (6.4-8.2)
[2021-04-28] MEDS: ASPIRIN 300 MG SUPP PR SCH (09:00)
[2021-04-28] MEDS: KCL 20MEQ IN D5/0.45NS 1000ML 1,000 ML IV SCH (10:27)
[2021-04-28] MEDS: NITROGLYCERIN/D5W 100MCG/ML 25 MG in IV 1 EA IV SCH ×3 (10:39→22:49)
[2021-04-28] MEDS ORDERED: ATROPINE SULF 1MG/10ML SYRINGE (J0461) IV PRN (11:20)
--- NOTE | 2021-04-28 11:21 | IPNPDOC ---
Text Note Date of Service The patient was seen on 04/28/21. NOTE Subjective: Patient continues to be verbally unresponsive. No fever. Yesterday I had a long discussion with her daughter Leah and with other family members. They would like to discuss comfort measures only in 2 to 3 days if no improvement in patient status. Yesterday patient was transferred to ICU due to uncontrolled blood pressure with hydralazine IV. Objective: GENERAL APPEARANCE: Verbally unresponsive HEENT: no scleral icterus, no JVD, EOMI CARDIOVASCULAR: S1S2, bradycardic at rate 52 LUNGS: CTA ABDOMEN: soft & not tender w palpitation MUSCULOSKELETAL: no cyanosis, no swelling INTEGUMENT: no generalized pallor NEUROLOGICAL: Unable to evaluate cranial nerves function, right hemiplegia, no nuchal rigidity Assessment/Plan Patient is 86 years old female with past medical history of Jeremie body dementia, hypertension presented to hospital with increased mental confusion. According to her daughter who is present in the ER patient developed increased mental conf usion on Saturday which became progressively worse compared to her baseline. Patient became more weak and somnolent. Her daughter brought her to the [facility] where patient was diagnosed with UTI, nitrofurantoin was prescribed. CT head was done and was negative for stroke or bleed. On Saturday patient was able to answer the question and communicate. Since Saturday patient became more mentally confused and weak. In ER patient was found to have elevated systolic blood pressure up to 210, leukocytosis of 12.1, creatinine within normal limit. Chest x-ray shows no any acute infiltrate, CT head negative for acute bleeding or stroke. 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 Severe stenosis of the mid P2 segment of the right posterior cerebral artery. (1) Metabolic encephalopathy/CVA Most likely secondary to stroke. Repeated CT showed Hypodensity is identified within the left basal ganglia, new compared to the recent prior study and therefore consistent with acute in farction Continue n.p.o. for now, patient is not able to swallow. Speech evaluation Overall prognosis is poor Continue aspirin per rectum Speech evaluation daily (2) Hypertensive emergency/hypertension Blood pressure was elevated yesterday. It was difficult to control with IV hydralazine, nicardipine drip was switched to nitroglycerin drip due to bradycardia by night team Hydralazine IV as needed Continue to monitor (3) Dementia Prognosis is poor (4) Physical deconditioning PT/OT (5) UTI (urinary tract infection) urine culture shows LACTOBACILLUS SPECIES, most likely contamination See above Hypernatremia/metabolic alkalosis Secondary to water deficit Continue D5 with half of normal saline with potassium supplementation We will continue to monitor BMP Bradycardia most likely due to central etiology secondary to stroke Atropine as needed if heart rate drops below 40 VS,Pankajbone, I+O VS, Fishbone, I+O Laboratory Tests 04/27/21 16:13 04/27/21 18:35 04/28/21 01:03 04/28/21 08:04 Vital Signs Date Time Temp Pulse Resp B/P (MAP) Pulse Ox O2 Delivery O2 Flow Rate FiO2 04/28/21 05:45 42 141/70 (93) 93 04/28/21 04:00 97.8 16 Room Air I&O- Last 24 Hours up to 6 AM 04/28/21 06:00 Intake Total 673.4 ml Output Total 950 ml Balance -276.6 ml TRACY PETE DO Apr 28, 2021 11:21
[2021-04-28 13:51] LABS: BLOOD UREA NITROGEN 18 MG/DL (7-18); CALCIUM LEVEL 7.9 MG/DL (8.8-10.2); CARBON DIOXIDE LEVEL 21 MEQ/L (21-32); CHLORIDE LEVEL 116 MEQ/L (98-107); CREATININE FOR GFR 0.56 MG/DL (0.55-1.30); GLOMERULAR FILTRATION RATE > 60.0 (>32); GLUCOSE, FASTING 127 MG/DL (70-100); POTASSIUM SERUM 3.5 MEQ/L (3.5-5.1); SODIUM LEVEL 145 MEQ/L (136-145)
[2021-04-28] MEDS ORDERED: D5W/0.45% SODIUM CHLORIDE 1,000 ML IV ONE (15:30)
[2021-04-28] MEDS ORDERED: LIDOCAINE 1% MDV 20ML VIAL As Ordered ONE (15:49)
--- NOTE | 2021-04-28 17:10 | REP ---
INDICATION: tpn. COMPARISON: None. TECHNIQUE: The procedure was performed under the direct supervision of Dr. Crowe. The risks and benefits of the procedure were explained to the patient and informed consent was obtained. The procedure was performed in the ICU at the bedside. The right basilic vein was localized using ultrasound guidance. The skin was prepped and draped in a sterile fashion. 1 mL of 1% lidocaine was used as a local anesthetic. Using ultrasound guidance the basilic vein was cannulated and a 0.018 guidewire was inserted. The needle was removed and a 5 English dilator and peel-away sheath was inserted over the guide wire. A 5 English dual lumen catheter was cut to length of 38 cm. The dilator was removed and the catheter was inserted over the guide wire. A portable chest x-ray was performed and the image demonstrates the catheter to be somewhat close to the right ventricle. The catheter was removed and cut to a length of 36 cm. The catheter was then reinserted. Another portable chest x-ray was performed and the image demonstrates the tip of the catheter to be in the SVC. The peel-away sheath was removed and the catheter was flushed with heparinized saline as per Hospital protocol. The catheter was affixed to the skin and a sterile dressing was applied. Estimated blood loss: Less than 1 cc The patient tolerated the procedure well and there were no immediate complications. FINDINGS: None IMPRESSION: PICC line insertion at the bedside, right basilic vein, with the tip ending in the SVC. <Electronically signed by Bayron Raphael > 04/28/21 [id number] <Electronically signed by Sarkis Crowe > 04/28/21 1329
[2021-04-28] MEDS ORDERED: MORPHINE 2 MG/ML 1ML VIAL (J2270) As Ordered ONE (17:32)
[2021-04-28] MEDS ORDERED: MORPHINE 2 MG/ML 1ML VIAL (J2270) IV ONE (17:35)
[2021-04-28] MEDS ORDERED: FAT EMULSION IV 250 ML IV SCH (18:00)
[2021-04-28] MEDS ORDERED: AMINO AC/ELECTROLYTE/DEX/CALC 2,000 ML IV SCH (18:00)
[2021-04-28] MEDS ORDERED: SODIUM CHLORIDE 0.9% INJ 10 ML SYR IV PRN (18:05)
[2021-04-28] MEDS: HumaLOG INSULIN (NovoLOG) PER UNIT SC SCH (18:26)
--- NOTE | 2021-04-28 18:33 | REP ---
INDICATION: DVT rule out. COMPARISON: None. TECHNIQUE: Left upper extremity duplex venous sonogram. FINDINGS: The internal jugular, axillary, brachial,veins are anechoic and compressible in the left upper extremity. Color flow imaging is homogeneous. Spectral Doppler interrogation is unremarkable. Venous spectral Doppler waveforms are recorded in the proximal right and left subclavian veins. There is symmetric normal pulsatility and respiratory phasicity. Right-sided PICC line is noted. There is no evidence of left upper extremity deep venous thrombosis. There is nonocclusive thrombus in a short segment of the right left basilic vein the left cephalic vein could not be visualized. IMPRESSION: There is a short segment of nonocclusive thrombus in the basilic vein near the antecubital fossa on the left side. Extensive soft tissue edema is seen in the arm on the left. No evidence of deep system thrombosis in the left upper extremity. Otherwise negative.. <Electronically signed by Stephen Mari > 04/28/21 0401
[2021-04-28 19:32] LABS: BLOOD UREA NITROGEN 19 MG/DL (7-18); CALCIUM LEVEL 7.9 MG/DL (8.8-10.2); CARBON DIOXIDE LEVEL 22 MEQ/L (21-32); CHLORIDE LEVEL 116 MEQ/L (98-107); CREATININE FOR GFR 0.54 MG/DL (0.55-1.30); GLOMERULAR FILTRATION RATE > 60.0 (>32); GLUCOSE, FASTING 131 MG/DL (70-100); POTASSIUM SERUM 3.5 MEQ/L (3.5-5.1); SODIUM LEVEL 146 MEQ/L (136-145)
[2021-04-28] MEDS: hydrALAZINE 20MG/ML 1ML VIAL (J0360 PER 20MG) IV PRN (20:51)
[2021-04-28] MEDS: HEPARIN SOD (PORCINE) 5000UNITS/ML 1ML VIAL/SYRINGE SQ SCH (22:01)
[2021-04-29] VITALS (92 sets, daily range): BP systolic 107–239; BP diastolic 56–120
[2021-04-29] MEDS: HumaLOG INSULIN (NovoLOG) PER UNIT SC SCH ×3 (00:41→12:00)
[2021-04-29] MEDS: NITROGLYCERIN/D5W 100MCG/ML 25 MG in IV 1 EA IV SCH ×3 (03:20→11:07)
[2021-04-29] MEDS: SODIUM CHLORIDE 0.9% INJ 10 ML SYR IV SCH ×2 (05:23→18:12)
[2021-04-29 05:35] LABS: BASO # 0.1 10^3/uL (0.0-0.2); BASO % 0.3 % (0.0-1.0); EOS # 0.2 10^3/uL (0.0-0.5); HEMATOCRIT 31.5 % (36.0-47.0); HEMOGLOBIN 10.3 g/dl (12.0-15.5); LYMPH # 1.3 10^3/uL (1.5-5.0); LYMPH % 8.2 % (24.0-44.0); MEAN CORPUSCULAR HEMOGLOBIN 30.8 pg (27.0-33.0); MEAN CORPUSCULAR HGB CONC 32.7 g/dl (32.0-36.5); MEAN CORPUSCULAR VOLUME 94.3 fl (80.0-96.0); MONO # 1.3 10^3/uL (0.0-0.8); MONO % 8.6 % (2.0-8.0); NEUTROPHILS # 12.4 10^3/uL (1.5-8.5); NEUTROPHILS % 80.2 % (36.0-66.0); PLATELET COUNT, AUTOMATED 263 10^3/uL (150-450); RED BLOOD COUNT 3.34 10^6/uL (4.00-5.40); WHITE BLOOD COUNT 15.5 10^3/uL (4.0-10.0)
[2021-04-29 05:54] LABS: BLOOD UREA NITROGEN 19 MG/DL (7-18); CALCIUM LEVEL 7.6 MG/DL (8.8-10.2); CARBON DIOXIDE LEVEL 21 MEQ/L (21-32); CHLORIDE LEVEL 105 MEQ/L (98-107); CREATININE FOR GFR 0.58 MG/DL (0.55-1.30); GLOMERULAR FILTRATION RATE > 60.0 (>32); GLUCOSE, FASTING 331 MG/DL (70-100); POTASSIUM SERUM 3.1 MEQ/L (3.5-5.1); SODIUM LEVEL 135 MEQ/L (136-145)
[2021-04-29 05:55] LABS: ALT/SGPT 120 U/L (12-78); BILIRUBIN,TOTAL 0.5 MG/DL (0.2-1.0); BLOOD UREA NITROGEN 20 MG/DL (7-18); CALCIUM LEVEL 7.8 MG/DL (8.8-10.2); CARBON DIOXIDE LEVEL 22 MEQ/L (21-32); CHLORIDE LEVEL 107 MEQ/L (98-107); CREATININE FOR GFR 0.55 MG/DL (0.55-1.30); GLOMERULAR FILTRATION RATE > 60.0 (>32); GLUCOSE, FASTING 288 MG/DL (70-100); MAGNESIUM LEVEL 1.9 MG/DL (1.8-2.4); POTASSIUM SERUM 3.1 MEQ/L (3.5-5.1); SODIUM LEVEL 138 MEQ/L (136-145); TOTAL PROTEIN 5.5 GM/DL (6.4-8.2)
[2021-04-29] MEDS: hydrALAZINE 20MG/ML 1ML VIAL (J0360 PER 20MG) IV PRN ×4 (06:48→22:09)
--- NOTE | 2021-04-29 09:44 | IPNPDOC ---
Text Note Date of Service The patient was seen on 04/29/21. NOTE Subjective: Patient continues to be verbally unresponsive. Yesterday evening patient developed left arm swelling, Doppler ultrasound was negative for DVT. Blood pressure in the morning was around 160/80. Discussed with family again the prognosis and goal of treatment. Her daughter stated again that she against PEG tube placement and she requires to continue TPN. Objective: GENERAL APPEARANCE: Verbally unresponsive HEENT: no scleral icterus, no JVD, EOMI CARDIOVASCULAR: S1S2 LUNGS: Diminished lung sounds with Rales ABDOMEN: soft & not tender w palpitation MUSCULOSKELETAL: no cyanosis, no cyanosis, no swelling, blisters over left forearm and antecubital fossa with skin exfoliation INTEGUMENT: no generalized pallor NEUROLOGICAL: Unable to evaluate cranial nerves function, right hemiplegia, no nuchal rigidity Assessment/Plan Patient is 86 years old female with past medical history of Jeremie body dementia, hypertension presented to hospital with increased mental confusion. According to her daughter who is present in the ER patient developed increased mental confusion on Saturday which became progressively worse compared to her b aseline. Patient became more weak and somnolent. Her daughter brought her to the [facility] where patient was diagnosed with UTI, nitrofurantoin was prescribed. CT head was done and was negative for stroke or bleed. On Saturday patient was able to answer the question and communicate. Since Saturday patient became more mentally confused and weak. In ER patient was found to have elevated systolic blood pressure up to 210, leukocytosis of 12.1, creatinine within normal limit. Chest x-ray shows no any acute infiltrate, CT head negative for acute bleeding or stroke. 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 Severe stenosis of the mid P2 segment of the right posterior cerebral artery. (1) Metabolic encephalopathy/CVA Most likely secondary to stroke. Repeated CT showed Hypodensity is identified within the left basal ganglia, new compared to the recent prior study and therefore consistent with acute infarction According to family wish we started TPN, family refused NG tube feeding Overall prognosis is poor Continue aspirin per rectum Speech evaluation daily (2) Hypertensive emergency/hypertension Continue nitroglycerin drip Hydralazine IV as needed Continue to monitor (3) Dementia Prognosis is poor (4) Physical deconditioning PT/OT (5) UTI (urinary tract infection) urine culture shows LACTOBACILLUS SPECIES, most likely contamination See above Hypernatremia/metabolic alkalosis Improved Continue to monitor BMP Bradycardia most likely due to central etiology secondary to stroke Atropine as needed if heart rate drops below 40 Leukocytosis Patient afebrile, there is concern for aspiration We will check procalcitonin and will do chest x-ray Hypokalemia Potassium will be replaced with TPN Left forearm and antecubital fossa swelling with blisters Most likely due to blood pressure cuff injury Doppler ultrasound negative for DVT Sterile coverage VS,Fishbone, I+O VS, Fishbone, I+O Laboratory Tests 04/28/21 13:14 04/28/21 19:01 04/29/21 05:15 04/29/21 05:16 Vital Signs Date Time Temp Pulse Resp B/P (MAP) Pulse Ox O2 Delivery O2 Flow Rate FiO2 04/29/21 06:48 187/84 04/29/21 05:30 62 26 93 Room Air 04/29/21 04:00 97.6 I&O- Last 24 Hours up to 6 AM 04/29/21 06:00 Intake Total 1609 ml Output Total 465 ml Balance 1144 ml TRACY PETE DO Apr 29, 2021 09:44
[2021-04-29] MEDS: KCL 10MEQ/100ML SWI (KRUN) 10 MEQ in IV 1 EA IV ONE ×2 (10:12→11:53)
--- NOTE | 2021-04-29 10:14 | REP ---
INDICATION: Pneumonia. COMPARISON: Comparison chest x-ray is a portable exam from April 27, 2021. TECHNIQUE: AP portable sitting radiograph.. FINDINGS: There is a right-sided PICC line with its tip in the expected location of the superior vena cava. Moderate cardiomegaly is observed. Left hemidiaphragm is elevated. Question small amount of left pleural fluid. There is linear fibrosis in the right perihilar region. The thoracic aorta is calcific and tortuous as before.. IMPRESSION: No new infiltrate. Moderate cardiac enlargement. Question small amount of left pleural fluid.. <Electronically signed by Stephen Mari > 04/29/21 1010
[2021-04-29] MEDS: ASPIRIN 300 MG SUPP PR SCH (10:18)
[2021-04-29] MEDS: HEPARIN SOD (PORCINE) 5000UNITS/ML 1ML VIAL/SYRINGE SQ SCH ×2 (10:18→21:57)
[2021-04-29] MEDS ORDERED: METOPROLOL 5 MG/5 ML VIAL IV STA (11:36)
[2021-04-29] MEDS ORDERED: MORPHINE 2 MG/ML 1ML VIAL (J2270) IV ONE (11:45)
[2021-04-29] MEDS ORDERED: DIGOXIN INJ 0.5 MG/2 ML AMP (J1160) IV STA (11:55)
[2021-04-29] MEDS: METOPROLOL 5 MG/5 ML VIAL IV SCH ×3 (12:20→12:39)
[2021-04-29] MEDS ORDERED: NITROGLYCERIN 2% OINT 1 GM *U/D* PKT TOP PRN (12:35)
[2021-04-29 13:13] LABS: BLOOD UREA NITROGEN 20 MG/DL (7-18); CALCIUM LEVEL 7.8 MG/DL (8.8-10.2); CARBON DIOXIDE LEVEL 21 MEQ/L (21-32); CHLORIDE LEVEL 109 MEQ/L (98-107); CREATININE FOR GFR 0.43 MG/DL (0.55-1.30); GLOMERULAR FILTRATION RATE > 60.0 (>32); GLUCOSE, FASTING 99 MG/DL (70-100); POTASSIUM SERUM 3.8 MEQ/L (3.5-5.1); SODIUM LEVEL 140 MEQ/L (136-145)
[2021-04-29] MEDS ORDERED: AMIODARONE HCL 150 MG in IV 1 EA IV ONE (13:15)
[2021-04-29] MEDS ORDERED: NITROGLYCERIN 0.3 MG SUBL TAB SL PRN (13:35)
[2021-04-29] MEDS: NIFEdipine 10 MG CAP PO SCH ×3 (14:00→21:57)
[2021-04-29] MEDS: NITROGLYCERIN 0.3 MG SUBL TAB SL STA ×2 (14:25→14:37)
[2021-04-29] MEDS: NITROGLYCERIN 2% OINT 1 GM *U/D* PKT TOP SCH ×2 (18:13→22:05)
--- NOTE | 2021-04-29 19:03 | ECGEPIP ---
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 Normal sinus rhythm was present Electronically Signed on 04-29-2021 19:03:45 EDT by Edu Golden
[2021-04-30] VITALS (9 sets, daily range): BP systolic 140–187; BP diastolic 60–92
[2021-04-30] MEDS: NITROGLYCERIN 2% OINT 1 GM *U/D* PKT TOP SCH ×6 (01:00→22:26)
[2021-04-30] MEDS: NIFEdipine 10 MG CAP PO SCH ×3 (05:34→22:25)
[2021-04-30] MEDS: SODIUM CHLORIDE 0.9% INJ 10 ML SYR IV SCH ×2 (05:34→17:36)
[2021-04-30 05:44] LABS: BASO # 0.1 10^3/uL (0.0-0.2); BASO % 0.4 % (0.0-1.0); EOS # 0.1 10^3/uL (0.0-0.5); EOS % 0.8 % (0.0-3.0); HEMATOCRIT 36.6 % (36.0-47.0); LYMPH # 1.6 10^3/uL (1.5-5.0); MEAN CORPUSCULAR HEMOGLOBIN 30.5 pg (27.0-33.0); MEAN CORPUSCULAR HGB CONC 32.8 g/dl (32.0-36.5); MEAN CORPUSCULAR VOLUME 92.9 fl (80.0-96.0); MONO # 1.4 10^3/uL (0.0-0.8); MONO % 11.2 % (2.0-8.0); PLATELET COUNT, AUTOMATED 290 10^3/uL (150-450); RED BLOOD COUNT 3.94 10^6/uL (4.00-5.40); WHITE BLOOD COUNT 12.6 10^3/uL (4.0-10.0)
[2021-04-30 06:06] LABS: ALBUMIN 2.1 GM/DL (3.2-5.2); ALT/SGPT 228 U/L (12-78); BLOOD UREA NITROGEN 16 MG/DL (7-18); CARBON DIOXIDE LEVEL 25 MEQ/L (21-32); CHLORIDE LEVEL 108 MEQ/L (98-107); CREATININE FOR GFR 0.42 MG/DL (0.55-1.30); GLOMERULAR FILTRATION RATE > 60.0 (>32); GLUCOSE, FASTING 93 MG/DL (70-100); MAGNESIUM LEVEL 1.9 MG/DL (1.8-2.4); POTASSIUM SERUM 3.3 MEQ/L (3.5-5.1); SODIUM LEVEL 140 MEQ/L (136-145)
[2021-04-30 07:51] LABS: TROPONIN I 0.38 NG/ML (< 0.10)
[2021-04-30] MEDS ORDERED: KCL 20MEQ IN 100ML SWI (KRUN) 20 MEQ in IV 1 EA IV ONE ×2 (08:00)
[2021-04-30] MEDS ORDERED: KCL 10MEQ/100ML SWI (KRUN) 10 MEQ in IV 1 EA IV SCH (08:00)
[2021-04-30] MEDS: HEPARIN SOD (PORCINE) 5000UNITS/ML 1ML VIAL/SYRINGE SQ SCH ×2 (08:07→22:32)
[2021-04-30] MEDS: ASPIRIN 300 MG SUPP PR SCH (08:07)
--- NOTE | 2021-04-30 11:02 | IPNPDOC ---
Text Note Date of Service The patient was seen on 04/30/21. NOTE Subjective: Patient continues to be unresponsive. She is able to open her eyes but does not follow any commands. Objective: GENERAL APPEARANCE: Verbally unresponsive HEENT: no scleral icterus, no JVD, EOMI CARDIOVASCULAR: S1S2 LUNGS: Diminished lung sounds with Rales ABDOMEN: soft & not tender w palpitation MUSCULOSKELETAL: no cyanosis, no swelling, blisters over left forearm and antecubital fossa with skin exfoliation INTEGUMENT: no generalized pallor NEUROLOGICAL: Unable to evaluate cranial nerves function, right hemiplegia, no nuchal rigidity Assessment/Plan Patient is 86 years old female with past medical history of Jeremie body dementia, hypertension presented to hospital with increased mental confusion. According to her daughter who is present in the ER patient developed increased mental confusion on Saturday which became progressively worse compared to her baseline. Patient became more weak and somnolent. Her daughter brought her to the [facility] where patient was diagnosed with UTI, nitrofurantoin was prescribed. CT head was done and was negative for stroke or bleed. On Saturday patient was able to answer the question and communicate. Since Saturday patient became more mentally confused and weak. In ER patient was found to have elevated systolic blood pressure up to 210, leukocytosis of 12.1, creatinine within normal limit. Chest x-ray shows no any acute infiltrate, CT head negative for acute bleeding or stroke. 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 Severe stenosis of the mid P2 segment of the right posterior cerebral artery. (1) Metabolic encephalopathy/CVA Most likely secondary to stroke. Repeated CT showed Hypodensity is identified within the left basal ganglia, new compared to the recent prior study and therefore consistent with acute infarction According to family wish we started TPN, family refused NG tube feeding. Overall prognosis is poor Continue aspirin per rectum Speech evaluation daily (2) Hypertensive emergency/hypertension/SVT Yesterday, patient's blood pressure was difficult to control, patient developed SVT with heart rate around 200. Dr. Lane recommended to stop nitroglycerin drip, continue to control blood pressure with Nitropaste and heart rate with nifedipine p.o. sublingually 3 times daily. Also patient received IV Lopressor three times. Subsequently, blood pressure improved and heart rate became under control. Hydralazine IV as needed Continue to monitor (3) Dementia Prognosis is poor (4) Physical deconditioning PT/OT (5) UTI (urinary tract infection) urine culture shows LACTOBACILLUS SPECIES, most likely contamination See above Hypernatremia/metabolic alkalosis Improved Continue to monitor BMP Bradycardia most likely due to central etiology secondary to stroke Atropine as needed if heart rate drops below 40 Leukocytosis Patient afebrile, there is concern for aspiration, However procalcitonin negative Chest x-ray was done on 04/29/2025 and shows No new infiltrate. Moderate cardiac enlargement. Hypokalemia We will replace with TPN Elevated troponin Most likely demand ischemia, 2nd troponin 0.[address] Lane, he did not recommend to follow troponin due to daily poor prognosis and the patient is not a candidate for cardiac catheterization. Also full dose of on anticoagulation can increase the risk of bleeding including brain bleed. Left forearm and antecubital fossa swelling with blisters Most likely due to blood pressure cuff injury Doppler ultrasound negative for DVT Sterile coverage Appreciate agree with endocrinology specialist consult. VS,Fishbone, I+O VS, Fishbone, I+O Laboratory Tests 04/29/21 12:19 04/30/21 05:27 Vital Signs Date Time Temp Pulse Resp B/P (MAP) Pulse Ox O2 Delivery O2 Flow Rate FiO2 04/30/21 08:08 167/78 04/30/21 08:00 98.4 62 24 95 Room Air I&O- Last 24 Hours up to 6 AM 04/30/21 06:00 Intake Total 247.7 ml Output Total 1060 ml Balance -812.3 ml TRACY PETE DO Apr 30, 2021 11:02
[2021-04-30] MEDS: hydrALAZINE 20MG/ML 1ML VIAL (J0360 PER 20MG) IV PRN ×2 (14:06→23:21)
[2021-04-30] MEDS: HumaLOG INSULIN (NovoLOG) PER UNIT SC SCH (17:35)
[2021-04-30] MEDS ORDERED: AMINO AC/ELECTROLYTE/DEX/CALC 2,000 ML IV SCH (18:00)
[2021-04-30] MEDS ORDERED: FAT EMULSION IV 250 ML IV SCH (18:00)
[2021-05-01] VITALS (22 sets, daily range): BP systolic 149–180; BP diastolic 73–92
[2021-05-01] MEDS: HumaLOG INSULIN (NovoLOG) PER UNIT SC SCH ×4 (01:58→17:36)
[2021-05-01] MEDS: NITROGLYCERIN 2% OINT 1 GM *U/D* PKT TOP SCH ×7 (01:59→21:00)
[2021-05-01] MEDS: hydrALAZINE 20MG/ML 1ML VIAL (J0360 PER 20MG) IV PRN ×4 (02:03→15:56)
[2021-05-01] MEDS: SODIUM CHLORIDE 0.9% INJ 10 ML SYR IV SCH ×2 (05:24→17:36)
[2021-05-01] MEDS: NIFEdipine 10 MG CAP PO SCH ×3 (05:24→22:18)
[2021-05-01 05:46] LABS: BASO # 0.1 10^3/uL (0.0-0.2); BASO % 0.6 % (0.0-1.0); EOS # 0.1 10^3/uL (0.0-0.5); EOS % 0.4 % (0.0-3.0); HEMATOCRIT 36.8 % (36.0-47.0); HEMOGLOBIN 12.3 g/dl (12.0-15.5); LYMPH # 1.3 10^3/uL (1.5-5.0); LYMPH % 8.4 % (24.0-44.0); MEAN CORPUSCULAR HGB CONC 33.4 g/dl (32.0-36.5); MEAN CORPUSCULAR VOLUME 92.7 fl (80.0-96.0); MONO # 1.7 10^3/uL (0.0-0.8); MONO % 10.4 % (2.0-8.0); NEUTROPHILS # 12.4 10^3/uL (1.5-8.5); NEUTROPHILS % 77.2 % (36.0-66.0); PLATELET COUNT, AUTOMATED 312 10^3/uL (150-450); RED BLOOD COUNT 3.97 10^6/uL (4.00-5.40)
[2021-05-01 06:10] LABS: ALBUMIN 1.9 GM/DL (3.2-5.2); ALT/SGPT 140 U/L (12-78); BILIRUBIN,TOTAL 0.4 MG/DL (0.2-1.0); BLOOD UREA NITROGEN 20 MG/DL (7-18); CARBON DIOXIDE LEVEL 26 MEQ/L (21-32); CHLORIDE LEVEL 107 MEQ/L (98-107); GLOMERULAR FILTRATION RATE > 60.0 (>32); GLUCOSE, FASTING 140 MG/DL (70-100); MAGNESIUM LEVEL 2.1 MG/DL (1.8-2.4); POTASSIUM SERUM 3.5 MEQ/L (3.5-5.1); SODIUM LEVEL 139 MEQ/L (136-145); TOTAL PROTEIN 5.9 GM/DL (6.4-8.2)
[2021-05-01] MEDS: HEPARIN SOD (PORCINE) 5000UNITS/ML 1ML VIAL/SYRINGE SQ SCH ×2 (08:26→21:44)
[2021-05-01] MEDS: ASPIRIN 300 MG SUPP PR SCH (09:17)
--- NOTE | 2021-05-01 12:09 | REP ---
INDICATION: Aspiration pneumonia. COMPARISON: Comparison chest x-ray April 29, 2021. TECHNIQUE: Portable upright AP chest radiograph. FINDINGS: A right-sided PICC line is seen with its tip in the expected location of the right atrium. Cardiomegaly is observed unchanged. The lungs are exposed at a relatively low level of inspiration. There is platelike atelectasis versus linear fibrosis right base unchanged. Pulmonary vasculature is not increased. No acute infiltrate is seen.. IMPRESSION: Right-sided PICC line. Cardiomegaly. Platelike atelectasis versus fibrosis right base. No acute infiltrate.. <Electronically signed by Stephen Mari > 05/01/21 [id number]
--- NOTE | 2021-05-01 12:46 | IPNPDOC ---
Text Note Date of Service The patient was seen on 05/01/21. NOTE Subjective: Patient continues to be unresponsive. I had long conversation with her daughter Shelli about goal of treatment. Family wants to continue TPN for 4 more days and then decide about PEG tube placement or comfort measures only. Blood pressure is more controlled today Objective: GENERAL APPEARANCE: Verbally unresponsive HEENT: no scleral icterus, no JVD, EOMI CARDIOVASCULAR: S1S2 LUNGS: Diminished lung sounds with Rales ABDOMEN: soft & not tender w palpitation MUSCULOSKELETAL: no cyanosis, no swelling, blisters over left forearm and antecubital fossa with skin exfoliation INTEGUMENT: no generalized pallor NEUROLOGICAL: Unable to evaluate cranial nerves function, right hemiplegia, no nuchal rigidity Assessment/Plan Patient is 86 years old female with past medical history of Jeremie body dementia, hypertension presented to hospital with increased mental confusion. According to her daughter who is present in the ER patient developed increased mental confusion on Saturday which became progressively worse compared to her baseline. Patient became more weak and somnolent. Her daughter brought her to the [facility] where patient was diagnosed with UTI, nitrofurantoin was prescribed. CT head was done and was negative for stroke or bleed. On Saturday patient was able to answer the question and communicate. Since Saturday patient became more mentally confused and weak. In ER patient was found to have elevated systolic blood pressure up to 210, leukocytosis of 12.1, creatinine within normal limit. Chest x-ray shows no any acute infiltrate, CT head negative for acute bleeding or stroke. 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 Severe stenosis of the mid P2 segment of the right posterior cerebral artery. (1) Metabolic encephalopathy/CVA Most likely secondary to stroke. Repeated CT showed Hypodensity is identified within the left basal ganglia, new compared to the recent prior study and therefore consistent with acute infar ction According to family wish we started TPN, family refused NG tube feeding. Overall prognosis is poor Continue aspirin per rectum Speech evaluation daily (2) Hypertensive emergency/hypertension/SVT continue to control blood pressure with Nitropaste and heart rate with nifedipine p.o. sublingually 3 times daily. Hydralazine IV as needed Continue to monitor (3) Dementia Prognosis is poor (4) Physical deconditioning PT/OT (5) UTI (urinary tract infection) urine culture shows LACTOBACILLUS SPECIES, most likely contamination See above Hypernatremia/metabolic alkalosis Improved Continue to monitor BMP Bradycardia most likely due to central etiology secondary to stroke Atropine as needed if heart rate drops below 40 Leukocytosis Chest x-ray ordered, will check procalcitonin Hypokalemia We will replace it with TPN Elevated troponin Most likely demand ischemia, 2nd troponin 0.[address] Lane, he did not recommend to follow troponin due to daily poor prognosis and the patient is not a candidate for cardiac catheterization. Also full dose of on anticoagulation can increase the risk of bleeding including brain bleed. Left forearm and antecubital fossa swelling with blisters Most likely due to blood pressure cuff injury Doppler ultrasound negative for DVT Sterile coverage Appreciate agree with retail operations specialist consult. VS,Fishbone, I+O VS, Fishbone, I+O Laboratory Tests 05/01/21 05:29 Vital Signs Date Time Temp Pulse Resp B/P (MAP) Pulse Ox O2 Delivery O2 Flow Rate FiO2 05/01/21 11:31 168/77 05/01/21 04:00 97.6 74 20 96 Room Air I&O- Last 24 Hours up to 6 AM 05/01/21 06:00 Intake Total 100 ml Output Total 975 ml Balance -875 ml TRACY PETE DO May 01, 2021 12:46
[2021-05-01] MEDS: PIPERACILLIN/TAZOBACTAM SOD 3.375 GM in D5W MINI-BAG PLUS 50 ML IV SCH ×2 (13:10→18:07)
[2021-05-01] MEDS: KETOROLAC 30 MG/ML 1ML VIAL IV SCH ×2 (13:10→18:07)
[2021-05-01] MEDS: MORPHINE 2 MG/ML 1ML VIAL (J2270) IV PRN ×2 (14:12→17:19)
[2021-05-01] MEDS ORDERED: AMINO AC/ELECTROLYTE/DEX/CALC 2,000 ML IV SCH (18:00)
[2021-05-01] MEDS ORDERED: FAT EMULSION IV 250 ML IV SCH (18:00)
--- NOTE | 2021-05-01 18:48 | CR ---
ADVANCED WOUND CARE CONSULTATION DATE: 05/01/2021 CONSULTATION REQUESTED BY: Kishor Man M.D. REASON FOR CONSULTATION: Wound care suggestions and treatment for left arm wound. Wound care Telemedicine provides a visual assessment of a wound or wounds without the benefit of a physical examination. It can assist in establishing a diagnosis and etiology. This allows for an initial treatment plan. As wounds often change, it may be necessary to modify the original care. A recommendation is periodic wound reassessment to monitor treatment. Failure to comply may result in nonhealing of the wound, possible complications and/or poor outcome. The recommendations given will serve as treatment options. As I will not be following this patient, this care plan will require the attending physician to give and sign the orders. Upon discharge or in the future, outpatient followup can be arranged at our wound care center, if applicable. HISTORY OF PRESENT ILLNESS: An 86-year-old female sustained intravenous (IV) infiltration with medication on 04/28/2021. This involved the antecubital fossa of her left upper extremity. The patient has had a stroke, is on total parenteral nutrition (TPN), as she cannot swallow appropriately, and may have an aspiration pneumonia as well. I have been asked to evaluate the wound involving the left upper extremity. The antecubital fossa shows an area of denuded skin measuring 5.0 cm x 9.0 cm, with a wound depth of 0.1 cm. Distal to this involving the forearm is a second wound measuring 4.0 cm x 3.0 cm. There are scattered areas of bullae to the second wound. The arm is swollen. However, the hand appears viable without any ischemic changes and, according to the nurses at bedside, is warm and there is a palpable radial pulse. This wound has not had any dressings or any wound care orders in place. Wounds like this should be treated much in the same way as a second degree burn. Wounds should be cleansed with Vashe wound cleanser for 10 minutes and the wound should be covered with a PolyMem foam dressing secured with one or two wraps of Kerlix and then a TubiGrip support stocking should be fitted in an effort to produce mild decompression. The left arm should be elevated at the elbow towards the wrist on several pillows using gravity to assist with decompression. The two or three bullous lesions present should be decompressed. This is easily done with a sterile scissors, snipping one edge of the bullous wound. PolyMem foam dressing should be used to cover. In the event that PolyMem is not available, a standard foam dressing can be utilized. The free-bordered nonadhesive foams would be preferable. Dressing changes should be performed every other day. Patient is at risk for other potential wounds, pressure injuries in probably the heels and the sacrum, and these should be inspected every shift to ensure that there are no developing wounds in these high risk areas. Please feel free to re-consult at any time. ANIKA
[2021-05-02] VITALS (22 sets, daily range): BP systolic 129–176; BP diastolic 64–90
[2021-05-02] MEDS: HumaLOG INSULIN (NovoLOG) PER UNIT SC SCH ×5 (00:06→23:59)
[2021-05-02] MEDS: KETOROLAC 30 MG/ML 1ML VIAL IV SCH ×4 (00:58→18:34)
[2021-05-02] MEDS: PIPERACILLIN/TAZOBACTAM SOD 3.375 GM in D5W MINI-BAG PLUS 50 ML IV SCH ×4 (01:00→18:34)
[2021-05-02] MEDS: NITROGLYCERIN 2% OINT 1 GM *U/D* PKT TOP SCH ×6 (01:02→20:13)
[2021-05-02 05:33] LABS: HEMATOCRIT 34.7 % (36.0-47.0); MEAN CORPUSCULAR HEMOGLOBIN 34.1 pg (27.0-33.0); MEAN CORPUSCULAR HGB CONC 34.6 g/dl (32.0-36.5); MEAN CORPUSCULAR VOLUME 98.6 fl (80.0-96.0); PLATELET COUNT, AUTOMATED 317 10^3/uL (150-450); RED BLOOD COUNT 3.52 10^6/uL (4.00-5.40); WHITE BLOOD COUNT 12.7 10^3/uL (4.0-10.0)
[2021-05-02 06:08] LABS: ANISOCYTOSIS 1+; ATYPICAL LYMPH 3 % (0-5); EOSINOPHILS 2 % (0-3); LYMPHOCYTES 22 % (16-44); MONOCYTES 3 % (0-5); NEUTROPHILS 69 % (28-66); PLATELET ESTIMATE NORMAL (NORMAL)
[2021-05-02] MEDS: SODIUM CHLORIDE 0.9% INJ 10 ML SYR IV SCH ×2 (06:08→18:34)
[2021-05-02] MEDS: NIFEdipine 10 MG CAP PO SCH ×3 (06:09→22:00)
[2021-05-02 07:09] LABS: ALBUMIN 1.9 GM/DL (3.2-5.2); ALT/SGPT 103 U/L (12-78); BILIRUBIN,TOTAL 0.4 MG/DL (0.2-1.0); BLOOD UREA NITROGEN 19 MG/DL (7-18); CALCIUM LEVEL 7.8 MG/DL (8.8-10.2); CARBON DIOXIDE LEVEL 28 MEQ/L (21-32); CHLORIDE LEVEL 105 MEQ/L (98-107); CREATININE FOR GFR 0.38 MG/DL (0.55-1.30); GLOMERULAR FILTRATION RATE > 60.0 (>32); GLUCOSE, FASTING 118 MG/DL (70-100); MAGNESIUM LEVEL 2.1 MG/DL (1.8-2.4); POTASSIUM SERUM 3.8 MEQ/L (3.5-5.1); SODIUM LEVEL 138 MEQ/L (136-145); TOTAL PROTEIN 5.1 GM/DL (6.4-8.2)
[2021-05-02] MEDS: HEPARIN SOD (PORCINE) 5000UNITS/ML 1ML VIAL/SYRINGE SQ SCH ×2 (08:41→20:19)
[2021-05-02] MEDS: ASPIRIN 300 MG SUPP PR SCH (08:41)
[2021-05-02] MEDS: MORPHINE 2 MG/ML 1ML VIAL (J2270) IV PRN (10:48)
--- NOTE | 2021-05-02 11:31 | IPNPDOC ---
Text Note Date of Service The patient was seen on 05/02/21. NOTE Subjective: Patient is unresponsive in the morning. Not in acute distress. Objective: GENERAL APPEARANCE: Verbally unresponsive HEENT: no scleral icterus, no JVD, EOMI CARDIOVASCULAR: S1S2 LUNGS: Diminished lung sounds ABDOMEN: soft & not tender w palpitation MUSCULOSKELETAL: no cyanosis, no swelling, left forearm and antecubital area covered with dressing INTEGUMENT: no generalized pallor NEUROLOGICAL: Unable to evaluate cranial nerves function, right hemiplegia, no nuchal rigidity Assessment/Plan Patient is 86 years old female with past medical history of Jeremie body dementia, hypertension presented to hospital with increased mental confusion. According to her daughter who is present in the ER patient developed increased mental confusion on Saturday which became progressively worse compared to her baseline. Patient became more weak and somnolent. Her daughter brought her to the [facility] where patient was diagnosed with UTI, nitrofurantoin was prescribed. CT head was done and was negative for stroke or bleed. On Saturday patient was able to answer the question and communicate. Since Saturday patient became more mentally confused and weak. In ER patient was found to have elevated systolic blood pressure up to 210, leukocytosis of 12.1, creatinine within normal limit. Chest x-ray shows no any acute infiltrate, CT head negative for acute bleeding or stroke. 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 Severe stenosis of the mid P2 segment of the right posterior cerebral artery. (1) Metabolic encephalopathy/CVA Most likely secondary to stroke. Repeated CT showed Hypodensity is identified within the left basal ganglia, new compared to the recent prior study and therefore consistent with acute infarction According to family wish we started TPN, family refused NG tube feeding. Overall prognosis is poor Continue aspirin per rectum Speech evaluation daily (2) Hypertensive emergency/hypertension/SVT continue to control blood pressure with Nitropaste and heart rate with nifedipine p.o. sublingually 3 times daily. Hydralazine IV as needed Continue to monitor (3) Dementia Prognosis is poor (4) Physical deconditioning PT/OT (5) UTI (urinary tract infection) urine culture shows LACTOBACILLUS SPECIES, most likely contamination See above Hypernatremia/metabolic alkalosis Improved Continue to monitor BMP Bradycardia most likely due to central etiology secondary to stroke Atropine as needed if heart rate drops below 40 Leukocytosis Chest x-ray ordered from 05/01/2021 shows no any acute infiltrate Procalcitonin 0.28. Increased of leukocyte count can be attributed to aspiration or stage II wound of left antecubital area and forearm I started Zosyn IV empirically. Leukocytosis improved today Hypokalemia replace it with TPN Elevated troponin Most likely demand ischemia, 2nd troponin 0.[address] Lane, he did not recommend to follow troponin due to daily poor prognosis and the patient is not a candidate for cardiac catheterization. Also full dose of on anticoagulation can increase the risk of bleeding including brain bleed. Left forearm and antecubital fossa swelling with blisters Most likely due to blood pressure cuff injury Doppler ultrasound negative for DVT Will follow Dr. Worthy recommendation VS,Jensen, I+O VS, Jensen, I+O Laboratory Tests 05/02/21 05:23 05/02/21 06:14 Vital Signs Date Time Temp Pulse Resp B/P (MAP) Pulse Ox O2 Delivery O2 Flow Rate FiO2 05/02/21 10:58 14 Room Air 05/02/21 09:00 61 149/76 (100) 95 05/02/21 08:00 97.4 I&O- Last 24 Hours up to 6 AM 05/02/21 06:00 Intake Total 930 ml Output Total 1295 ml Balance -365 ml TRACY PETE DO May 02, 2021 11:31
[2021-05-02] MEDS ORDERED: FAT EMULSION IV 250 ML IV SCH (18:00)
[2021-05-02] MEDS ORDERED: AMINO AC/ELECTROLYTE/DEX/CALC 2,000 ML IV SCH (18:00)
[2021-05-03] VITALS (7 sets, daily range): BP systolic 157–210; BP diastolic 74–110
[2021-05-03] MEDS: KETOROLAC 30 MG/ML 1ML VIAL IV SCH ×4 (00:29→18:34)
[2021-05-03] MEDS: PIPERACILLIN/TAZOBACTAM SOD 3.375 GM in D5W MINI-BAG PLUS 50 ML IV SCH ×4 (00:51→18:33)
[2021-05-03] MEDS: NITROGLYCERIN 2% OINT 1 GM *U/D* PKT TOP SCH ×6 (01:00→21:36)
[2021-05-03] MEDS: NIFEdipine 10 MG CAP PO SCH ×3 (05:51→21:36)
[2021-05-03] MEDS: HumaLOG INSULIN (NovoLOG) PER UNIT SC SCH ×4 (06:33→23:57)
[2021-05-03] MEDS: SODIUM CHLORIDE 0.9% INJ 10 ML SYR IV SCH ×2 (07:33→18:00)
[2021-05-03] MEDS: ASPIRIN 300 MG SUPP PR SCH (08:18)
[2021-05-03] MEDS: HEPARIN SOD (PORCINE) 5000UNITS/ML 1ML VIAL/SYRINGE SQ SCH ×2 (08:19→21:35)
[2021-05-03 09:38] LABS: HEMATOCRIT 38.2 % (36.0-47.0); HEMOGLOBIN 12.6 g/dl (12.0-15.5); MEAN CORPUSCULAR HEMOGLOBIN 30.8 pg (27.0-33.0); MEAN CORPUSCULAR VOLUME 93.4 fl (80.0-96.0); PLATELET COUNT, AUTOMATED 343 10^3/uL (150-450); RED BLOOD COUNT 4.09 10^6/uL (4.00-5.40); WHITE BLOOD COUNT 13.3 10^3/uL (4.0-10.0)
[2021-05-03 10:07] LABS: ALBUMIN 1.9 GM/DL (3.2-5.2); ALT/SGPT 112 U/L (12-78); BILIRUBIN,TOTAL 0.4 MG/DL (0.2-1.0); BLOOD UREA NITROGEN 19 MG/DL (7-18); CALCIUM LEVEL 7.9 MG/DL (8.8-10.2); CARBON DIOXIDE LEVEL 26 MEQ/L (21-32); CHLORIDE LEVEL 107 MEQ/L (98-107); CREATININE FOR GFR 0.43 MG/DL (0.55-1.30); GLOMERULAR FILTRATION RATE > 60.0 (>32); GLUCOSE, FASTING 118 MG/DL (70-100); MAGNESIUM LEVEL 2.3 MG/DL (1.8-2.4); POTASSIUM SERUM 4.1 MEQ/L (3.5-5.1); SODIUM LEVEL 140 MEQ/L (136-145); TOTAL PROTEIN 5.2 GM/DL (6.4-8.2)
[2021-05-03 10:24] LABS: ATYPICAL LYMPH 3 % (0-5); EOSINOPHILS 2 % (0-3); LYMPHOCYTES 16 % (16-44); METAMYELOCYTES 2 % (0-0); MONOCYTES 2 % (0-5); MYELOCYTES 3 % (0-0); NEUTROPHILS 70 % (28-66)
[2021-05-03 10:25] LABS: PLATELET ESTIMATE NORMAL (NORMAL)
--- NOTE | 2021-05-03 12:50 | IPNPDOC ---
Text Note Date of Service The patient was seen on 05/03/21. NOTE Subjective: Patient is unresponsive in the morning. Her daughter Leah thomas to talk with neurologist Dr. Chowdary before family decision to transfer patient to [facility] Objective: GENERAL APPEARANCE: Verbally unresponsive HEENT: no scleral icterus, no JVD, EOMI CARDIOVASCULAR: S1S2 LUNGS: Diminished lung sounds ABDOMEN: soft & not tender w palpitation MUSCULOSKELETAL: no cyanosis, no swelling, left forearm and antecubital area covered with dressing INTEGUMENT: no generalized pallor NEUROLOGICAL: Unable to evaluate cranial nerves function, right hemiplegia, no nuchal rigidity Assessment/Plan Patient is 86 years old female with past medical history of Jeremie body dementia, hypertension presented to hospital with increased mental confusion. According to her daughter who is present in the ER patient developed increased mental confusion on Saturday which became progressively worse compared to her baseline. Patient became more weak and somnolent. Her daughter brought her to the [facility] where patient was diagnosed with UTI, nitrofurantoin was prescribed. CT head was done and was negative for stroke or bleed. On Saturday patient was able to answer the question and communicate. Since Saturday patient became more mentally confused and weak. In ER patient was found to have elevated systolic blood pressure up to 210, leukocytosis of 12.1, creatinine within normal limit. Chest x-ray shows no any acute infiltrate, CT head negative for acute bleeding or stroke. 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 Severe stenosis of the mid P2 segment of the right posterior cerebral artery. (1) Metabolic encephalopathy/CVA Most likely secondary to stroke. Repeated CT showed Hypodensity is identified within the left basal ganglia, new compared to the recent prior study and therefore consistent with acute infarction According to family wish we started TPN, family refused NG tube feeding. Overall prognosis is poor Continue aspirin per rectum Speech evaluation daily (2) Hypertensive emergency/hypertension/SVT continue to control blood pressure with Nitropaste and heart rate with nifedipine p.o. sublingually 3 times daily. Hydralazine IV as needed Continue to monitor (3) Dementia Prognosis is poor (4) Physical deconditioning PT/OT (5) UTI (urinary tract infection) urine culture shows LACTOBACILLUS SPECIES, most likely contamination See above Hypernatremia/metabolic alkalosis Improved Continue to monitor BMP Bradycardia most likely due to central etiology secondary to stroke Atropine as needed if heart rate drops below 40 Leukocytosis Chest x-ray ordered from 05/01/2021 shows no any acute infiltrate Procalcitonin 0.28. Increased of leukocyte count can be attributed to aspiration or stage II wound of left antecubital area and forearm Continue Zosyn IV empirically day 2 Hypokalemia replace it with TPN Elevated troponin Most likely demand ischemia, 2nd troponin 0.[address] Lane, he did not recommend to follow troponin due to daily poor prognosis and the patient is not a candidate for cardiac catheterization. Also full dose of on anticoagulation can increase the risk of bleeding including brain bleed. Left forearm and antecubital fossa swelling with blisters Most likely due to blood pressure cuff injury Doppler ultrasound negative for DVT follow Dr. Worthy recommendation VS,Jensen, I+O VS, Jensen, I+O Laboratory Tests 05/03/21 09:25 Vital Signs Date Time Temp Pulse Resp B/P (MAP) Pulse Ox O2 Delivery O2 Flow Rate FiO2 05/03/21 11:25 97.9 53 18 157/74 (101) 96 Room Air I&O- Last 24 Hours up to 6 AM 05/03/21 06:00 Intake Total 1640 ml Output Total 1825 ml Balance -185 ml TRACY PETE DO May 03, 2021 12:50
[2021-05-03] MEDS ORDERED: MULTIVITAMIN -ADULT INJECTION 10 ML, CR/CU/SE/MN/ZN INJ 1 ML in AMINO AC/ELECTROLYTE/DE... IV SCH (18:00)
[2021-05-03] MEDS ORDERED: AMINO AC/ELECTROLYTE/DEX/CALC 2,000 ML IV SCH ×2 (18:00)
[2021-05-03] MEDS ORDERED: FAT EMULSION IV 250 ML IV SCH ×2 (18:00)
[2021-05-03] MEDS ORDERED: HumaLOG INSULIN (NovoLOG) PER UNIT SC SCH (18:00)
[2021-05-04] VITALS (7 sets, daily range): BP systolic 140–210; BP diastolic 67–110
[2021-05-04] MEDS: KETOROLAC 30 MG/ML 1ML VIAL IV SCH ×3 (00:02→12:18)
[2021-05-04] MEDS: PIPERACILLIN/TAZOBACTAM SOD 3.375 GM in D5W MINI-BAG PLUS 50 ML IV SCH ×3 (00:02→12:18)
[2021-05-04] MEDS: NITROGLYCERIN 2% OINT 1 GM *U/D* PKT TOP SCH ×4 (00:04→12:19)
[2021-05-04 04:53] LABS: HEMATOCRIT 36.8 % (36.0-47.0); MEAN CORPUSCULAR HEMOGLOBIN 30.4 pg (27.0-33.0); MEAN CORPUSCULAR HGB CONC 32.6 g/dl (32.0-36.5); MEAN CORPUSCULAR VOLUME 93.2 fl (80.0-96.0); PLATELET COUNT, AUTOMATED 331 10^3/uL (150-450); RED BLOOD COUNT 3.95 10^6/uL (4.00-5.40); WHITE BLOOD COUNT 12.8 10^3/uL (4.0-10.0)
[2021-05-04 05:19] LABS: ALT/SGPT 97 U/L (12-78); BILIRUBIN,TOTAL 0.3 MG/DL (0.2-1.0); BLOOD UREA NITROGEN 19 MG/DL (7-18); CALCIUM LEVEL 7.6 MG/DL (8.8-10.2); CARBON DIOXIDE LEVEL 26 MEQ/L (21-32); CHLORIDE LEVEL 107 MEQ/L (98-107); GLOMERULAR FILTRATION RATE > 60.0 (>32); GLUCOSE, FASTING 137 MG/DL (70-100); MAGNESIUM LEVEL 2.1 MG/DL (1.8-2.4); POTASSIUM SERUM 3.8 MEQ/L (3.5-5.1); SODIUM LEVEL 138 MEQ/L (136-145)
[2021-05-04] MEDS: NIFEdipine 10 MG CAP PO SCH ×2 (05:23→13:55)
[2021-05-04 05:26] LABS: ATYPICAL LYMPH 1 % (0-5); EOSINOPHILS 6 % (0-3); LYMPHOCYTES 15 % (16-44); METAMYELOCYTES 4 % (0-0); MONOCYTES 10 % (0-5); MYELOCYTES 1 % (0-0); NEUTROPHILS 62 % (28-66)
[2021-05-04 05:27] LABS: PLATELET ESTIMATE NORMAL (NORMAL)
[2021-05-04] MEDS: SODIUM CHLORIDE 0.9% INJ 10 ML SYR IV SCH (06:35)
[2021-05-04] MEDS: HumaLOG INSULIN (NovoLOG) PER UNIT SC SCH ×2 (06:35→12:17)
[2021-05-04] MEDS: HEPARIN SOD (PORCINE) 5000UNITS/ML 1ML VIAL/SYRINGE SQ SCH (08:13)
[2021-05-04] MEDS: ASPIRIN 300 MG SUPP PR SCH (08:13)
--- NOTE | 2021-05-04 12:52 | IPNPDOC ---
Text Note Date of Service The patient was seen on 05/04/21. NOTE Subjective: Patient continues to be unresponsive in the morning. She is able to open her eyes, does not follow commands Objective: GENERAL APPEARANCE: Verbally unresponsive HEENT: no scleral icterus, no JVD, EOMI CARDIOVASCULAR: S1S2 LUNGS: Diminished lung sounds ABDOMEN: soft & not tender w palpitation MUSCULOSKELETAL: no cyanosis, no swelling, left forearm and antecubital area covered with dressing INTEGUMENT: no generalized pallor NEUROLOGICAL: Unable to evaluate cranial nerves function, right hemiplegia, no nuchal rigidity Assessment/Plan Patient is 86 years old female with past medical history of Jeremie body dementia, hypertension presented to hospital with increased mental confusion. According to her daughter who is present in the ER patient developed increased mental confusion on Saturday which became progressively worse compared to her baseline. Patient became more weak and somnolent. Her daughter brought her to the [facility] where patient was diagnosed with UTI, nitrofurantoin was prescribed. CT head was done and was negative for stroke or bleed. On Saturday patient was able to answer the question and communicate. Since Saturday patient b ecame more mentally confused and weak. In ER patient was found to have elevated systolic blood pressure up to 210, leukocytosis of 12.1, creatinine within normal limit. Chest x-ray shows no any acute infiltrate, CT head negative for acute bleeding or stroke. 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 Severe stenosis of the mid P2 segment of the right posterior cerebral artery. (1) Metabolic encephalopathy/CVA Most likely secondary to stroke. Repeated CT showed Hypodensity is identified within the left basal ganglia, new compared to the recent prior study and therefore consistent with acute infarction According to family wish we started TPN, family refused NG tube feeding. Overall prognosis is poor Continue aspirin per rectum Speech evaluation daily (2) Hypertensive emergency/hypertension/SVT continue to control blood pressure with Nitropaste and heart rate with nifedip ine p.o. sublingually 3 times daily. Hydralazine IV as needed Continue to monitor (3) Dementia Prognosis is poor (4) Physical deconditioning PT/OT (5) UTI (urinary tract infection) urine culture shows LACTOBACILLUS SPECIES, most likely contamination See above Hypernatremia/metabolic alkalosis Improved Continue to monitor BMP Bradycardia most likely due to central etiology secondary to stroke Atropine as needed if heart rate drops below 40 Leukocytosis Chest x-ray ordered from 05/01/2021 shows no any acute infiltrate Procalcitonin 0.28. Increased of leukocyte count can be attributed to aspiration or stage II wound of left antecubital area and forearm Continue Zosyn IV empirically day 3 Hypokalemia replace it with TPN Elevated troponin Most likely demand ischemia, 2nd troponin 0.[address] Lane, he did not recommend to follow troponin due to daily poor prognosis and the patient is not a candidate for cardiac catheterization. Also full dose of on anticoagulation can increase the risk of bleeding including brain bleed. Left forearm and antecubital fossa swelling with blisters Most likely due to blood pressure cuff injury Doppler ultrasound negative for DVT follow Dr. Worthy recommendation VS,Jensen, I+O VS, Pankajbone, I+O Laboratory Tests 05/04/21 04:39 Vital Signs Date Time Temp Pulse Resp B/P (MAP) Pulse Ox O2 Delivery O2 Flow Rate FiO2 05/04/21 12:19 182/98 05/04/21 11:58 99.2 70 18 95 Room Air I&O- Last 24 Hours up to 6 AM 05/04/21 06:00 Intake Total 760 ml Output Total 2275 ml Balance -1515 ml TRACY PETE DO May 04, 2021 12:52
[2021-05-04] MEDS ORDERED: MORPHINE 10MG/0.5ML ORAL CONCENTRATE SOLUTION U/D SL PRN (14:45)
[2021-05-04] MEDS ORDERED: FLEET ENEMA PR PRN (14:45)
[2021-05-04] MEDS ORDERED: BISACODYL 10 MG SUPP PR PRN (14:45)
[2021-05-04] MEDS ORDERED: ONDANSETRON 4MG/2ML VIAL IV PRN (14:45)
[2021-05-04] MEDS ORDERED: ATROPINE SULFATE 1% OP SOLN 2 ML BTL SL PRN (14:45)
[2021-05-04] MEDS: MORPHINE 2 MG/ML 1ML VIAL (J2270) IV PRN (18:00)
[2021-05-06] MEDS: HYOSCYAMINE SULFATE 0.125 MG SUBL TABLET PO PRN (11:49)
[2021-05-06] MEDS: SCOPOLAMINE 1MG TRANSDERMAL PATCH TOP PRN (11:50)
[2021-05-06] MEDS: MORPHINE 2 MG/ML 1ML VIAL (J2270) IV PRN (21:28)
[2021-05-07] MEDS: MORPHINE 2 MG/ML 1ML VIAL (J2270) IV PRN ×2 (06:57→18:13)
[2021-05-08] MEDS: MORPHINE 2 MG/ML 1ML VIAL (J2270) IV PRN (12:32)
[2021-05-08] MEDS: LORazepam 2 MG/ML VIAL IV PRN (16:10)
[2021-05-09] MEDS: MORPHINE 2 MG/ML 1ML VIAL (J2270) IV PRN ×2 (12:17→21:57)
[2021-05-09] MEDS: LORazepam 2 MG/ML VIAL IV PRN (21:57)
[2021-05-10] MEDS: SCOPOLAMINE 1MG TRANSDERMAL PATCH TOP PRN (08:53)
[2021-05-10] MEDS: LORazepam 2 MG/ML VIAL IV PRN (08:53)
[2021-05-10] MEDS: MORPHINE 2 MG/ML 1ML VIAL (J2270) IV PRN (08:57)
[2021-05-11] MEDS: MORPHINE 2 MG/ML 1ML VIAL (J2270) IV PRN ×5 (09:37→21:29)
[2021-05-11] MEDS: HYOSCYAMINE SULFATE 0.125 MG SUBL TABLET PO PRN (09:37)
--- NOTE | 2021-05-11 15:41 | IPNPDOC ---
Text Note Date of Service The patient was seen on 05/11/21. NOTE Subjective: Patient is an 86-year-old female who presented to the hospital with encephalopathy and was found to have acute CVA. Patient has a history of underlying Lewy body dementia. In talking with the patient's daughter who is bedside today, she had made the patient TRUST OPERATIONS ASSISTANT as she found an advanced directive stating that the patient would like to be comfort measures only if she was ever in a nonreversible state such as when she is in. Patient is on comfort measures only status at this time. Patient is doing otherwise well. Physical exam: Vitals: See below General: Female patient who was sleeping comfortably in bed when I walked in the room. Patient did not appear to be in any acute distress. HEENT: Normocephalic, atraumatic, moist mucous membranes. Neck: No lymphadenopathy or thyromegaly Cardiac: Regular rate and rhythm, no murmurs, normal S1, normal S2 Pulm: Clear to auscultation bilaterally. No wheezes, rhonchi, rales Labs: See below Imaging: No new imaging has been performed. Assessment/plan: 86-year-old female with a history of Lewy body dementia who was found to have CVA in the left basal ganglia. 1. Encephalopathy most likely secondary to CVA. Patient was made TRUST OPERATIONS ASSISTANT status. 2. Hypertensive emergency, hypertension, SVT. Patient is TRUST OPERATIONS ASSISTANT and medications have been stopped. 3. Lewy body dementia. Patient's prognosis is poor and patient is on TRUST OPERATIONS ASSISTANT status. DVT Prophylaxis: None due to TRUST OPERATIONS ASSISTANT status Disposition: Patient is ALC on TRUST OPERATIONS ASSISTANT status and we will continue comfort measures only. VS,Fishbone, I+O VS, Fishbone, I+O I&O- Last 24 Hours up to 6 AM 05/11/21 06:00 Intake Total 0 ml Output Total 875 ml Balance -875 ml LYNETTE COX DO May 11, 2021 15:41
[2021-05-12] MEDS: MORPHINE 2 MG/ML 1ML VIAL (J2270) IV PRN ×4 (09:08→17:29)
--- NOTE | 2021-05-13 15:50 | DS.PDOC ---
Discharge Summary General Date of Admission Apr 24, 2021 at 14:24 Date of Discharge 05/13/2021 Primary Care Physician: Juve Lopez Attending Physician: LYNETTE COX DO Specialist/Consultants Involve: DELROY CHOWDARY MD Specialist/Consultants Involve Dominic Worthy MD, wound care Discharge Summary PROCEDURES PERFORMED DURING STAY: PICC line insertion. ADMITTING DIAGNOSES: 1. Metabolic encephalopathy. 2. Hypertensive emergency 3. Lewy body dementia 4. Physical deconditioning 5. Urinary tract infection. DISCHARGE DIAGNOSES: 1. Encephalopathy most likely secondary to left basal ganglia CVA. 2. Left basal ganglia CVA 3. 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 Lewy body dementia 5. Physical deconditioning 6. Hypertensive emergency, resolved 7. Urinary tract infection, resolved 8. 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 HISTORY OF PRESENT ILLNESS: Patient is an 86-year-old female who presented to the hospital on April 24, 2021 with confusion, altered speech, leaning to the right side, and facial droop. Patient was initially diagnose sent to [facility] where she was diagnosed with a urinary tract infection and prescribed nitrofurantoin. Patient symptoms worsen the next day and she developed more speech difficulty and right-sided weakness. Patient followed with a neurologist in [facility] she had a summer cottage in the area. At her [facility] she was able to walk in communicate. Patient son-in-law did not note significant memory issues at the patient's baseline. Patient was unable to provide any meaningful history during the visit. Patient's CT angiogram of the head and neck showed left middle cerebral artery severe stenosis and right posterior cerebral artery severe stenosis. Patient was admitted for encepha lopathy most likely secondary to CVA. HOSPITAL COURSE: Patient stayed in the hospital and was seen by Dr. Chowdary of neurology on 04/25/2021. Because an MRI of the brain was not feasible as the patient was unable to lay still a repeat CT scan was ordered for the next day. Repeat CT scan showed hypodensity in the left basal ganglia which was new compared to the prior study and is consistent with an acute infarction. Patient was unable to swallow due to the new onset stroke. Neurology stated that the patient's prognosis was very poor and the patient's prognosis was very poor due to her new onset acute CVA on top of her underlying dementia that have been diagnosed by outside neurologist as Lewy body dementia. Patient was unresponsive throughout most of the hospitalization and patient was placed on TPN. Patient's daughter Shelli wanted to continue TPN and then decide about possible PEG tube placement. Family had refused NG tube feedings according to documentation. Patient continues to be unresponsive but is able to open her eyes. On 05/04/2021, family decided to make the patient comfort measures only. Patient was placed on comfort measures only at that time. I spoke with daughter who stated that she had found an advanced directive stating that if the patient 's prognosis was poor and she was in an irreversible condition that she would want to be comfort measures only. Patient remained hospitalized and at 4:23 AM on 05/13/2021. DISCHARGE MEDICATIONS: Please see below. ALLERGIES: Please see below. PHYSICAL EXAMINATION ON DISCHARGE: VITAL SIGNS: Please see below. Physical exam was not completed as the patient overnight LABORATORY DATA: Please see below. IMAGING: Chest x-ray performed on 04/24/2021 is reported to show no acute infiltrate. Mild cardiomegaly. CT the head without contrast on 04/24/2021 is reported to show chronic atrophy, no acute intracranial hemorrhage, midline shift or mass-effect. CT angiography of the head performed on 04/24/2021 was reported to show severe stenosis at the M1/M2 junction of the left middle cerebral artery with focal occlusion of the origin of the left M2 superior division. Severe stenosis of the mid P2 segment of the right posterior cerebral artery. CT angiogram of the neck performed on 04/24/2021 is reported to show no significant cervical arterial stenosis. Carotid ultrasound performed on 04/24/2021 was reported to show no right carotid arterial stenosis, limited evaluation of the left carotid and left vertebral artery due to lack of patient cooperation. CT of the head without contrast performed on 04/25/2021 was reported to show hypodensity is identified within the left basal ganglia, new compared to the recent prior study and therefore consistent with acute infarction. Correlation with MRI recommended, as clinically indicated. There are periventricular foci of white matter hypodensity, likely representing small vessel ischemic disease. Mild atrophy. Chest x-ray performed on 04/27/2021 was reported to show CHF pattern with vascular cephalization and cardiomegaly. Bibasilar linear fibrosis. Duplex ultrasound of the left upper extremity venous system performed on 04/28/2021 was reported to show there is a short segment of nonocclusive thrombus in the basilic vein near the antecubital fossa on the left side. Extensive soft tissue edema is seen in the arm on the left. No evidence of DVT in the left upper extremity. Otherwise negative. Chest x-ray performed on 04/29/2021 was reported to show no new infiltrate. Moderate cardiac enlargement. Question small amount of left pleural fluid. Chest x-ray performed on 05/01/2021 is reported to show right-sided PICC line. Cardiomegaly. Platelike atelectasis versus fibrosis right base. No acute infiltrate. PROGNOSIS: DISPOSITION: 20 . DISCHARGE CONDITION: . TIME SPENT ON DISCHARGE: 25 minutes. Vital Signs/I&Os I&O- Last 24 Hours up to 6 AM 05/13/21 06:00 Intake Total 0 ml Output Total 0 ml Balance 0 ml Discharge Medications Scheduled Donepezil HCl (Donepezil HCl) 10 Mg Tablet, 10 MG PO QHS, (Reported) Melatonin (Melatonin) 10 Mg Capsule, 10 MG PO QHS, (Reported) Nitrofurantoin Monohyd/M-Cryst (Nitrofurantoin Fannin-Mcr 100 mg) 100 Mg Capsule, 100 MG PO BID, (Reported) Scheduled PRN Acetaminophen (Tylenol) 325 Mg Tablet, 650 MG PO QHS PRN for PAIN LEVEL 1-5, (Reported) Albuterol Sulfate (Proair Hfa) 8.5 Gm Hfa.aer.ad, 2 PUFF INH Q4H PRN for SHORTNESS OF BREATH, (Reported) Phenazopyridine HCl (Phenazopyridine HCl) 200 Mg Tablet, 200 MG PO TID PRN for BLADDER SPASM, (Reported) Allergies Coded Allergies: Sulfa (Sulfonamide Antibiotics) (Verified Allergy, Unknown, 04/24/21) LYNETTE COX DO May 13, 2021 15:50
== END 2021-05-13 09:32 | disposition expired | DRG 64 ==
LOC: M ED 08:32 → EDBD 08:32 → M ED INP 14:24 → ENRESERVTM 14:53 → ENRESERVDT 14:53 → M PCU 20:35 → M ICU 04-27 18:21 → M PCU 05-02 16:40 → M MSPAV 05-04 19:35
PROVIDERS: ADMIT Internal Medicine; ATTEND Family Medicine
PROC: 02HV33Z Insertion of Infusion Device into Superior Vena Cava, Percutaneous Approach (ICD-10-PCS; principal; 2021-04-28 16:00)
DX: I63.9 Cerebral infarction, unspecified (principal); G93.41 Metabolic encephalopathy; I16.1 Hypertensive emergency; I69.351 Hemiplegia and hemiparesis following cerebral infarction affecting right dominant side; E87.0 Hyperosmolality and hypernatremia; E87.3 Alkalosis; I47.1 Supraventricular tachycardia; I24.8 Other forms of acute ischemic heart disease; R09.01 Asphyxia; N39.0 Urinary tract infection, site not specified; E46 Unspecified protein-calorie malnutrition; R00.1 Bradycardia, unspecified; I66.02 Occlusion and stenosis of left middle cerebral artery; I66.21 Occlusion and stenosis of right posterior cerebral artery; E87.6 Hypokalemia; G31.83 Neurocognitive disorder with Lewy bodies; F02.80 Dementia in other diseases classified elsewhere, unspecified severity, without behavioral disturbance, psychotic disturbance, mood disturbance, and anxiety; Z51.5 Encounter for palliative care; Z88.2 Allergy status to sulfonamides; Z79.899 Other long term (current) drug therapy; Z95.2 Presence of prosthetic heart valve